=== PATIENT | male | born 1930 | race Caucasian/White ===

== ENCOUNTER 2017-12-03 15:15 | Inpatient (IN) | payer MEDICARE ==
--- NOTE | 2017-12-03 15:51 | RAD ---
UPRIGHT PORTABLE CHEST ONE VIEW: History: 86-year-old male with history of dyspnea. Comparison: 11-07-16 FINDINGS: There is cardiomegaly. Left ICD. Blunting in both costophrenic angles suggesting effusions. Metal den sity opacity overlying the right chest. Mild bilateral vascular congestion. Little change in appearan ce from prior study. IMPRESSION: Overall stable appearing cardiomegaly with vascular congestion and small pleural effusions. No new pr ocess. POS: [facility]
[2017-12-03 16:27] LABS: #Lymphocytes 1.7 thou/uL (1.20-3.40); #Monocytes 0.9 thou/uL (0.11-0.59); #Neutrophils 5.3 thou/uL (1.40-6.50); %Basophils 0.2 % (0.0-1.0); %Eosinophils 0.3 % (0.0-10.0); %Lymphocytes 21.6 % (21.0-51.0); %Monocytes 11.3 % (0.0-10.0); %Neutrophils 66.6 % (42.0-75.0); Hemoglobin 13.4 g/dL (14.0-18.0); Mean Corpuscular HGB CONC 33.4 g/dL (32.0-36.0); Mean Corpuscular Hemoglobin 33.8 pg (27.0-31.0); Mean Platelet Volume 9.2 fL (7.4-10.4); Platelet Count 201 thou/uL (130-400); RBC Distribution Width 13.4 % (11.5-14.5); Red Blood Cell (RBC) Count 3.97 mill/uL (4.70-6.10)
[2017-12-03] MEDS ORDERED: Furosemide 20 MG/2 ML VIAL ONE (16:47)
[2017-12-03 16:48] LABS: ALT (SGPT) 50 U/L (8-55); AST (SGOT) 26 U/L (5-34); Alkaline Phosphatase 184 U/L (40-150); Anion Gap 20 mmol/L (10-20); BUN (Urea Nitrogen) 46 mg/dL (8.4-25.7); Bilirubin, Total 1.4 mg/dL (0.2-1.2); CK (CPK) 101 U/L (30-200); Calc. Creatinine Clearance 0 mL/min (70-130); Calcium 9.1 mg/dL (7.8-10.44); Carbon Dioxide 22 mmol/L (23-31); Chloride 97 mmol/L (98-107); Estimated GFR-MDRD 30; Globulin 3.2 g/dL (2.4-3.5); Glucose 127 mg/dL (83-110); Potassium 3.9 mmol/L (3.5-5.1); Protein, Total 7.2 g/dL (5.8-8.1); Sodium 135 mmol/L (136-145)
[2017-12-03] MEDS ORDERED: Furosemide 40 MG/4 ML VIAL ONE (16:50)
[2017-12-03 16:53] LABS: CKMB 2.5 ng/mL (0-6.6)
--- NOTE | 2017-12-03 20:16 | HP ---
DATE OF ADMISSION: 12/03/2017 PRIMARY CARE PHYSICIAN: Dr. Landry in [place]. PRIMARY COMPENSATION PROGRAMS MANAGER: Dr. Tong. CHIEF COMPLAINT: Shortness of breath. The patient is a transfer from [facility]. HISTORY OF PRESENT ILLNESS: The patient is an 86-year-old male with chronic systolic and diastolic h eart failure, ejection fraction 20%-25%, status post AICD, presented to [facility] with wor sening shortness of breath along with orthopnea. He also has exertional fatigue along with lighthead edness. He noticed his abdomen to be distended along with decreased appetite. No nausea, vomiting, diaphoresis, palpitations reported. At the [facility], his device was interrogated and his fluid index was at 180. He has gain ed 10 pounds in the last 10 days despite up titration of the oral diuretics at home. He was seen 10 days ago at the [facility] again for weight gain of 10 pounds at that time. Torsemide dose was increased at that time. The patient is compliant with his medications as well as fluid restrict ion. PAST MEDICAL HISTORY: 1. 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 2. Coronary artery disease. 3. Ischemic cardiomyopathy. 4. Gastroesophageal reflux disease. 5. Hiatal hernia. 6. Benign prostatic hypertrophy. PAST SURGICAL HISTORY: AICD placement. ALLERGIES: LINACLOTIDE. CURRENT HOME MEDICATIONS: The patient is unable to remember all of his medications. Family to bring the accurate list of medications. SOCIAL HISTORY: The patient currently lives at home with his family. No smoking, alcohol or drug us e. He is FULL CODE and makes his own decisions with the help of his family. FAMILY HISTORY: Negative for inheritable diseases in his family. REVIEW OF SYSTEMS: The following complete review of systems was negative, unless otherwise mentioned in the HPI or below: Constitutional: Weight loss or gain, ability to conduct usual activities. Skin: Rash, itching. Eyes: Double vision, pain. ENT/Mouth: Nose bleeding, neck stiffness, pain, tenderness. Cardiovascular: Palpitations, dyspnea on exertion, orthopnea. Respiratory: Shortness of breath, wheezing, cough, hemoptysis, fever or night sweats. Gastrointestinal: Poor appetite, abdominal pain, heartburn, nausea, vomiting, constipation, or diarrhea. Genitourinary: Urgency, frequency, dysuria, nocturia. Musculoskeletal: Pain, swelling. Neurologic/Psychiatric: Anxiety, depression. Allergy/Immunologic: Skin rash, bleeding tendency. PHYSICAL EXAMINATION: VITAL SIGNS: In the emergency room showed temperature 98.5, respirations 20, pulse of 72, blood pres sure 95/72 and 95/65 with O2 saturation 99% on room air. GENERAL: An 86-year-old male, in mild respiratory distress, unable to lie down flat. HEENT: Head atraumatic, normocephalic, Sclerae are anicteric. Moist mucous membrane. No oral lesio n. NECK: Supple. JVD elevated to the angle of the jaw. No carotid bruit. LUNGS: Showed diminished air entry at bilateral bases with bibasilar rales. There was mild accessor y muscle use. HEART: S1, S2 present. Regular rate and rhythm, 2/6 systolic murmur over the mitral area. ABDOMEN: Soft. Bowel sounds present. Distended. No significant shifting dullness appreciated. EXTREMITIES: 1+ pitting edema noted in bilateral lower extremities. SKIN: Warm and dry. LYMPH NODES: No palpable lymph nodes in the neck. PERIPHERAL VASCULAR: Radial pulses palpable bilaterally. MUSCULOSKELETAL: No joint swelling or tenderness. LABORATORY FINDINGS: BNP 9082. Total bilirubin 1.4 with alkaline phosphatase 184. Sodium 135, pota ssium 3.9, chloride 97, bicarbonate 22, BUN 46, creatinine 2.1. CBC showed WBC 8.0 with hemoglobin 1 3.4, hematocrit 40, platelet count of 201. EKG by my review showed paced rhythm. Chest x-ray by my review showed pulmonary vascular congestion with small pleural effusion. IMPRESSION: 1. 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 The patient has gained approxima tely 20 pounds in the last 3 weeks per [facility] records. His fluid index on Optival inte rrogation was 180. 2. Acute kidney injury on chronic kidney disease stage 3, probably secondary to cardiorenal syndrome . 3. Abnormal liver function tests, probably secondary to passive hepatic congestion. 4. Elevated troponins, probably secondary to demand ischemia/congestive heart failure. 5. Hyponatremia. 6. Microcytic anemia. 7. Gastroesophageal reflux disease. 8. Benign prostatic hypertrophy. 9. Degenerative joint disease. PLAN: The patient will be monitored on the telemetry unit. His blood pressure is in systolic 90s at this time. He received 60 mg IV Lasix around 5:00 p.m. We will start him on Lasix drip at 10 mg an hour overnight due to low blood pressure as well as acute kidney injury. We will hold NILESH inhibitor and ARB for now due to elevated creatinine. We will resume beta blockers at low dose if blood press ure improves in a.m. We will monitor labs on a daily basis. We will confirm home medications. We w ill consult heart failure disease management as well as cardiac rehabilitation. Fluid restriction. Cardiology will be consulted. We will monitor labs on a daily basis. Plan of care was discussed with the patient in detail. He stated understanding.
[2017-12-03] MEDS ORDERED: Senokot 8.6 MG TAB PO PRN (20:23)
[2017-12-03] MEDS ORDERED: Ondansetron HCl/PF 4 MG/2 ML Vial IVP PRN (20:23)
[2017-12-03] MEDS ORDERED: Mag-Al 1200 mg/1200 mg/30 ML UDCUP PO PRN (20:23)
[2017-12-03] MEDS ORDERED: Nitroglycerin 0.4 MG TAB (25 Tab Bottle) PO PRN (20:26)
[2017-12-03] MEDS ORDERED: Potassium Chloride 20 MEQ TAB PO SCH (20:30)
[2017-12-03 21:27] LABS: Troponin I 0.029 ng/mL (< 0.028)
[2017-12-03] MEDS: Famotidine 20 MG TAB PO SCH (22:08)
[2017-12-03] MEDS: Furosemide 100 MG in Sodium Chloride 0.9% 100 ML IVPB SCH (22:10)
[2017-12-03] MEDS: Docusate 100 MG CAP PO SCH (22:10)
[2017-12-04 06:00] LABS: Anion Gap 15 mmol/L (10-20); BUN (Urea Nitrogen) 47 mg/dL (8.4-25.7); Calc. Creatinine Clearance 31 mL/min (70-130); Calcium 8.9 mg/dL (7.8-10.44); Carbon Dioxide 24 mmol/L (23-31); Chloride 101 mmol/L (98-107); Estimated GFR-MDRD 34; Glucose 116 mg/dL (83-110); Magnesium 2.6 mg/dL (1.6-2.6); Phosphorus 4.4 mg/dL (2.3-4.7); Potassium 3.8 mmol/L (3.5-5.1); Sodium 136 mmol/L (136-145)
[2017-12-04] MEDS: Furosemide 100 MG in Sodium Chloride 0.9% 100 ML IVPB SCH ×2 (07:30→17:39)
[2017-12-04] MEDS: Aspirin 81 mg Enteric Coated Tablet PO SCH (08:59)
[2017-12-04] MEDS: Cyanocobalamin (Vitamin B-12) 1,000 MCG TAB PO SCH (08:59)
[2017-12-04] MEDS: Folic Acid 1 MG TAB PO SCH (08:59)
[2017-12-04] MEDS: Docusate 100 MG CAP PO SCH ×2 (08:59→20:37)
[2017-12-04] MEDS: Potassium Chloride 20 MEQ TAB PO SCH (08:59)
[2017-12-04] MEDS: Multivit, Therapeutic 1 TAB PO SCH (08:59)
--- NOTE | 2017-12-04 12:43 | CON ---
DATE OF CONSULTATION: 12/04/2017 REASON FOR CONSULTATION: Abdominal distention, bloating and pain. HISTORY: Mr. Williamson is an 86-year-old male who was admitted from the [facility] with wors ening dyspnea and orthopnea. He has known severe systolic and diastolic heart failure with ejection fraction of 20%-25%. Patient has had chronic shortness of breath, but has somewhat improved since ad mission yesterday. He reports having persistent bloating sensation in his abdomen along with distent ion over the last 2 months. He denies having any nausea or vomiting. He did have some diarrhea for 2 days approximately 2 months ago after given antibiotics for his sinus infection, but has since reso lved. He is having normal regular bowel movements. Of note, he has had chronic constipation for man y years. He denies having any visible bleeding in stool or melena. He described a generalized bloat ing sensation with low grade pain/discomfort in the periumbilical area. He reports having had previo us cholecystectomy. He also reports having had a colonoscopy in [place] last year. As far as he kn ows, there were no notable findings with his colonoscopy. PAST MEDICAL HISTORY: 1. Coronary artery disease, status post AICD placement. 2. Chronic systolic and diastolic heart failure. 3. Ischemic cardiomyopathy. 4. Gastroesophageal reflux. 5. Benign prostatic hypertrophy. 6. Status post cholecystectomy. ALLERGIES: LINACLOTIDE. MEDICATIONS AT HOME: Include torsemide 10 mg every day, 20 mg p.m., K-Dur 20 mEq daily, pantoprazole 40 mg daily, Coreg 12.5 mg b.i.d., aspirin 81 mg every day, and Entresto b.i.d. SOCIAL HISTORY: The patient denies any alcohol or tobacco usage. FAMILY HISTORY: Negative for any known GI problem, liver disease, GI malignancy. REVIEW OF SYSTEMS: GENERAL: Poor appetite, unknown weight loss. EYES, EARS, NOSE AND THROAT: Nega tive. CARDIOVASCULAR: He denies any chest pain. CHEST: Shortness of breath as above. GASTROINTES TINAL: As above. GENITOURINARY: No urinary issue. NEURO: No sensory or motor deficit. PHYSICAL EXAMINATION: VITAL SIGNS: Temperature is 97.7, blood pressure 107/50, pulse of 71. GENERAL: Alert, conversant, in no distress. HEENT: Shows normal pupils, anicteric. Oropharynx clear. HEART: Shows normal S1, S2, regular rate and rhythm. LUNGS: Chest exam shows breath sounds, no adventitious sounds. ABDOMEN: Very soft, no distention, no tympany. No appreciable fluid wave. He has active bowel soun ds, essentially nontender to palpation. EXTREMITIES: Showed trace pedal edema. LABORATORY DATA: Sodium 136, potassium 3.8, chloride 101, CO2 24, creatinine 1.88, BUN of 47, biliru bin 1.4, AST 26, ALT 50, alkaline phosphatase 184. WBC is 8.0, hemoglobin 13.4, platelet count of 20 1. ASSESSMENT: 1. Several week history of abdominal bloating and distention with periumbilical pain. His current a bdominal exam is very normal and benign. I do not appreciate any fluid wave, nor any tympany or appr eciable distention. There is no palpable mass. Reportedly, he had an unremarkable colonoscopy in [place] last year. 2. Heart failure. 3. Coronary artery disease. 4. Chronic gastroesophageal reflux. 5. Status post cholecystectomy. RECOMMENDATIONS: 1. Given his persistent complaint of abdominal bloating, distention and pain with very normal physic al exam, I will obtain abdominal CT with enteric contrast (no IV contrast because of his poor renal f unction) to evaluate for any intra-abdominal pathology. 2. Further recommendation to follow pending CT findings.
--- NOTE | 2017-12-04 14:14 | ULT ---
LIMITED ABDOMINAL ULTRASOUND: History: Evaluation for ascites. FINDINGS: Some minimal ascites is noted in the right upper quadrant and left lower quadrant of the abdomen. IMPRESSION: Minimal ascites. POS: [facility]
--- NOTE | 2017-12-04 15:07 | CT ---
NONCONTRAST ENHANCED CT IMAGES OF THE ABDOMEN AND PELVIS: History: Abdominal distention. Oral contrast was given. IV contrast was not administered. FINDINGS: Noncontrast enhanced CT images of the abdomen and pelvis demonstrates bilateral pleural effusions. A small amount of ascites is seen. There is gastroesophageal reflux with some contrast in the distal esophagus. There appears to be an a marry of soft tissue thickening in the greater curvature of the stomach. Gastric wall mass cannot be ex cluded. The liver and spleen are grossly unremarkable. The pancreas is moderately atrophied. The gallbladder has been surgically removed. Both kidneys are atrophied with cortical thinning. There is an exophytic lesion in the right kidney most compatible with a cortical cyst. Atherosclerotic calcification of the abdominal aorta is seen. There is marked enlargement of the prostate gland. Small amount of free fluid is seen extending into the right inguinal canal. There is a small pocket of gas within the urinary bladder. Whether this is introduced via catheteriza tion or possibly due to gas forming organism within the bladder I cannot determine. Correlate with hi story. There is also some bladder wall thickening seen. Multilevel lumbar degenerative changes seen. IMPRESSION: 1. Ascites. 2. Bilateral pleural effusions. 3. Prostate enlargement. 4. Urinary bladder thickening and pocket of gas within it. 5. Greater curvature gastric wall thickening, malignancy cannot be excluded. POS: [facility]
--- NOTE | 2017-12-04 16:56 | PDOC.PN ---
- Subjective Encounter Start Date: 12/04/17 Encounter Start Time: 09:00 Patient seen and examined for CHF. c/o Abd distention with poor appetite. Dizziness improving. No CP/SOB/Palpitations. No overnight events - Objective Resuscitation Status: Resuscitation Status DNR:Do Not Resuscitate MAR Reviewed: Yes Vital Signs & Weight: Vital Signs (12 hours) Temp Pulse Pulse Pulse Resp BP BP 12/04/17 13:26 76 100/63 12/04/17 12:00 97.2 F L 73 14 12/04/17 10:07 71 74 107/59 L 100/66 12/04/17 08:00 97.7 F 60 18 BP BP Pulse Ox Pulse Ox Pulse Ox 12/04/17 13:26 96 12/04/17 12:00 102/69 97 12/04/17 10:07 97 12/04/17 08:00 105/67 99 Weight Weight 176 lb 3.2 oz I&O: 12/03/17 12/04/17 12/05/17 06:59 06:59 06:59 Intake Total 915 400 Output Total 900 Balance 15 400 Result Diagrams: 12/03/17 16:12 12/04/17 16:39 Radiology Reviewed by me: Yes EKG Reviewed by me: Yes (Tele paced) Phys Exam - Physical Examination Constitutional: NAD (at rest) Neck: supple JVD + Respiratory: no wheezing Bibasilar rales with scat rhonchi, Symmetrical, Mild accessory muscle use Cardiovascular: RRR, no rub No heaves/pulsations Gastrointestinal: soft, no distention, positive bowel sounds Musculoskeletal: pulses present, edema present (improving) Neurological: non-focal, moves all 4 limbs Psychiatric: normal affect, A&O x 3 Dx/Plan - Plan DVT proph w/SCDs IMPRESSION: 1. 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 ACEI/ARB on hold due to PADMA 2. Acute kidney injury on chronic kidney disease stage 3, probably secondary to cardiorenal syndrome. improving 3. Abnormal liver function tests, probably secondary to passive hepatic congestion. 4. Elevated troponins, probably secondary to demand ischemia/congestive heart failure. 5. Hyponatremia. improiving 6. Microcytic anemia. 7. Gastroesophageal reflux disease. on Pepcid 8. Benign prostatic hypertrophy. 9. Degenerative joint disease. PLAN: * Abd Ultrasound to assess for ascites * Reduce Lasix drip at 6 mg/ hr * Repeat BMP later today * AM labs * Cont ASA * Resume low dose Betablockers - hold for SBP <100 * Cont to monitor * Cont current meds as below Review of Systems - Review of Systems Respiratory: negative: Cough, Dry, Shortness of Breath, Hemoptysis, SOB with Excertion, Pleuritic Pain, Sputum, Wheezing Gastrointestinal: Abdominal Pain. negative: Nausea, Vomiting, Diarrhea, Constipation, Melena, Hematochezia, Other Genitourinary: negative: Dysuria, Frequency, Incontinence, Hematuria, Retention , Other - Medications/Allergies Allergies/Adverse Reactions: Allergies Allergy/AdvReac Type Severity Reaction Status Date / Time linaclotide [From Linzess] Allergy Diarrhea Verified 12/03/17 22:04 Medications: Current Medications Acetaminophen (Tylenol) 650 mg PO Q4H PRN PRN Reason: Headache/Fever or Pain Al Hydroxide/Mg Hydroxide (Maalox) 30 ml PO Q6H PRN PRN Reason: Heartburn or Indigestion Aspirin (Ecotrin) 81 mg PO DAILY [facility] Last Admin: 12/04/17 08:59 Dose: 81 mg Calcium Carbonate (Tums) 1,000 mg PO Q4H PRN PRN Reason: Heartburn or Indigestion Carvedilol (Coreg) 3.125 mg PO BID [facility] Cyanocobalamin (Vitamin B-12) 1,000 mcg PO DAILY [facility] Last Admin: 12/04/17 08:59 Dose: 1,000 mcg Docusate Sodium (Colace) 100 mg PO BID [facility] Last Admin: 12/04/17 08:59 Dose: Not Given Famotidine (Pepcid) 20 mg PO QPM [facility] Last Admin: 12/03/17 22:08 Dose: 20 mg Folic Acid (Folvite) 1 mg PO DAILY [facility] Last Admin: 12/04/17 08:59 Dose: 1 mg Furosemide 100 mg/ Sodium (Chloride) 110 mls @ 11 mls/hr IVPB INF [facility] PRN Reason: 10 MG/HR Last Admin: 12/04/17 07:30 Dose: 110 mls Multivitamins (Theragran) 1 tab PO DAILY [facility] Last Admin: 12/04/17 08:59 Dose: 1 tab Nitroglycerin (Nitrostat) 0.4 mg PO Q5MIN PRN PRN Reason: Chest Pain Ondansetron HCl (Zofran Odt) 4 mg PO Q6H PRN PRN Reason: Nausea/Vomiting Ondansetron HCl (Zofran) 4 mg IVP Q6H PRN PRN Reason: Nausea/Vomiting Potassium Chloride (K-Dur) 20 meq PO QAM-WM [facility] Last Admin: 12/04/17 08:59 Dose: 20 meq Senna (Senokot) 2 tab PO HSPRN PRN PRN Reason: Constipation Sodium Chloride (Flush - Normal Saline) 10 ml IVF Q12HR [facility] Last Admin: 12/04/17 09:00 Dose: Not Given Sodium Chloride (Flush - Normal Saline) 10 ml IVF PRN PRN PRN Reason: Saline Flush
[2017-12-04 17:05] LABS: Anion Gap 20 mmol/L (10-20); BUN (Urea Nitrogen) 51 mg/dL (8.4-25.7); Calc. Creatinine Clearance 26 mL/min (70-130); Calcium 9.3 mg/dL (7.8-10.44); Carbon Dioxide 21 mmol/L (23-31); Chloride 99 mmol/L (98-107); Estimated GFR-MDRD 28; Glucose 154 mg/dL (83-110); Potassium 4.2 mmol/L (3.5-5.1); Sodium 136 mmol/L (136-145)
[2017-12-04] MEDS: Famotidine 20 MG TAB PO SCH (20:37)
[2017-12-04] MEDS: Carvedilol 3.125 MG TAB PO SCH (20:37)
[2017-12-04 22:12] LABS: Bilirubin Negative (Negative); Blood, Urine Small (Negative); Clarity CLEAR (Clear); Glucose, Urine (Dipstick) Negative (Negative); Leukocyte Small (Negative); Nitrite Negative (Negative); Protein, Urine (Dipstick) Negative (Neg-Trace); Specific Gravity, Urine 1.011 (1.002-1.036)
[2017-12-04 22:15] LABS: Bacteria/HPF None Seen HPF (None Seen); Hyaline Casts/LPF 4-6 HYALINE CAST LPF (0-3 Hyaline); Squamous Epithelial 0-3 HPF (0-3)
[2017-12-05] MEDS: cefTRIAXone\\ROCEPHIN 1 GM in Sodium Chloride 0.9% 100 ML IVPB SCH ×2 (00:16→23:57)
--- NOTE | 2017-12-05 00:54 | CON ---
DATE OF CONSULTATION: 12/04/2017 INDICATION FOR CONSULTATION: An 86-year-old gentleman who I have followed for many years. He has reyes d a long history of cardiomyopathy extending almost 20 years. He has had an AICD implant, has been d oing relatively well. He has chronic dizziness. He also has occasional chest discomfort and abdomin al distention, which causes him increasing shortness of breath. He describes that yesterday he was h aving more of a bloating-type sensation and was unable to take a deep breath in, but has not had any significant change overall. He has had multiple problems in the past. He has always had this chroni c dizziness and hypotension. He has had history of cardiac catheterization in the past, had not had any critical coronary artery disease. He does have some mild disease. Mainly, he has had an ejectio n fraction of less than 20% as noted for almost 20 years now. He has had no significant chest discom fort otherwise, and this appears to be more associated with abdominal bloating and distention causing some of his discomfort. He does have elevated BNP due to his chronic diastolic and systolic heart f ailure. He has been maintained relatively well and has been seen by the [facility]. He do es not have any significant lower extremity edema and his volume status has remained relatively stabl e despite having increase in his BNP. His cardiac enzymes are unremarkable for any evidence of coron armin artery disease or any evidence of myocardial infarction. They are indeterminate, but are not gato vated enough to consider myocardial infarction. He does have chronic kidney disease also. His creat inine actually has now increased up from 0.188 up to 2.24 after being given some diuretics. He may a ctually be somewhat volume depleted and third spacing, but otherwise he has been remaining relatively stable overall with his coronary artery disease. He actually presented yesterday to [facility] with a suitcase in hand saying that he needed to admitted, mainly due to dizziness and the shortness of breath, but again he states that he did have some abdominal discomfort and bloating angélica ng it difficult for him to breathe, not that he is actually short of breath, but he has difficulty to actually get a deep breath in. He said his defibrillator was checked on a routine basis and this reyes s been actually very stable. His last echocardiogram was performed in the office in 07/2017, which s howed an ejection fraction of about 25% with left ventricular dilatation, left atrial dilatation, mod erate mitral valve regurgitation, [id number] aortic valve regurgitation. Otherwise, he has don e relatively well. His last cardiac catheterization was many years ago. PAST MEDICAL HISTORY: Significant for the cardiomyopathy, peptic ulcer disease, he has had carpal tu nnel syndrome, gastroesophageal reflux disease, history of shingles in 2016. PAST SURGICAL HISTORY: He has had an AICD placement, he actually had a change out of the AICD in . He has had cataract surgery and cholecystectomy. ALLERGIES: None. MEDICATIONS: His medications prior to admission included Dexilant, Tylenol Arthritis, Claritin, Core g 25 mg half a tablet twice a day, Entresto 24/26 one tablet twice a day, torsemide 20 mg one and rhiannon f tablet daily, potassium 10 mEq a day. FAMILY HISTORY: Noncontributory. REVIEW OF SYSTEMS: He mainly complains of the shortness of breath at times and also has abdominal di scomfort and chronic dizziness. He has had no significant weight loss or weight gain. Respiratory: He has had no complaints recently of any pneumonias, coughing, or hemoptysis. Gastrointestinal: He mainly complains of some bloating, some discomfort with pressure. Genitourinary: He had no new complaints. No dysuria, polyuria, or hematuria. Musculoskeletal: Occasional lower extremity edema. He is able to ambulate relatively well despite his age. Neurologic: No history of seizures or syn cope. PHYSICAL EXAMINATION: GENERAL: Reveals an elderly gentleman, who is in no acute distress at this time. VITAL SIGNS: Blood pressure is 100/67. He is afebrile, respiratory rate is 16, heart rate is in the 70s and shows a sinus rhythm with ventricular pacing at times. Otherwise, it appears to be just a s inus rhythm with a bundle branch block. His original EKG did show evidence of atrial pacing and most likely ventricular pacing, but it was initially atrial pacing with ventricular sensing with a right bundle branch block. He has remained otherwise stable. CHEST: Clear to auscultation. I did not hear any rales, rhonchi, or wheezing. CARDIOVASCULAR: Regular rate and rhythm at this time. There were no gross murmurs noted. He does h ave a soft systolic murmur at the apex. ABDOMEN: Some tympany and also some distention and some mild discomfort on palpation, but no palpabl e masses were noted. EXTREMITIES: No clubbing or cyanosis. He had minimal lower extremity edema. Pedal pulses are decre ased, but popliteal pulses are present. NEUROLOGIC: The patient appears to be intact. LABORATORY DATA: As noted, showed the creatinine of 2.24 after some diuresis. His hemoglobin was 13 .4. He actually may be somewhat over diuresed at this time. IMPRESSION: 1. Probable congestive heart failure exacerbation with diastolic and systolic heart failure, which m ay be associated with worsening of his abdominal bloating. I am uncertain of the etiology of his abd ominal discomfort. He may need to have a GI consultation. He did have an endoscopy several years ag o and I believe he has been told that he had peptic ulcer disease in the past. He is certainly compr omised when he has any decrease in his diaphragmatic function as he is unable to take deep inspirator y breaths and that makes him to feel somewhat short of breath. 2. History of severe cardiomyopathy, both systolic and diastolic dysfunction. He is status post imp lant for an AICD. He has had no shocks from the device. He appears to be doing very well as far as that is concerned. Little more to offer from a cardiac standpoint as far as his cardiomyopathy is co ncerned. He seems to be on the correct medications and as noted, he has had a diagnosis of cardiomyo mena for at least 17 years. 3. History of dizziness. This is an ongoing problem for this gentleman. He has complained of dizzi ness for many years now, and uncertain also of the etiology of his dizziness, but this is a chronic a nd ongoing problem. He does also have a history of mild coronary artery disease. This has remained stable. He is not a candidate to undergo intervention at this time. 4. Gastroesophageal reflux disease. I would suggest that perhaps he have a Gastroenterology consult ation to see if we can give any relief of his abdominal discomfort, which may actually help his cardi ac status.
[2017-12-05 05:57] LABS: Anion Gap 17 mmol/L (10-20); BUN (Urea Nitrogen) 51 mg/dL (8.4-25.7); Calc. Creatinine Clearance 28 mL/min (70-130); Calcium 9.5 mg/dL (7.8-10.44); Carbon Dioxide 23 mmol/L (23-31); Chloride 101 mmol/L (98-107); Estimated GFR-MDRD 31; Glucose 132 mg/dL (83-110); Magnesium 2.9 mg/dL (1.6-2.6); Phosphorus 4.2 mg/dL (2.3-4.7); Sodium 137 mmol/L (136-145)
[2017-12-05] MEDS: Furosemide 100 MG in Sodium Chloride 0.9% 90 ML IVPB SCH ×2 (06:40→23:57)
[2017-12-05] MEDS: Carvedilol 3.125 MG TAB PO SCH ×2 (08:21→21:26)
[2017-12-05] MEDS: Docusate 100 MG CAP PO SCH ×2 (08:22→21:26)
[2017-12-05] MEDS ORDERED: Midazolam HCl 2 mg/2 ml Vial ONE (10:27)
[2017-12-05] MEDS ORDERED: Norepinephrine 4 MG/4 ML VIAL ONE (10:27)
[2017-12-05] MEDS ORDERED: Ketamine 50 MG/ML VIAL ONE (10:27)
[2017-12-05] MEDS ORDERED: Promethazine HCl 25 MG/ML VIAL SLOW IVP PRN (10:52)
[2017-12-05] MEDS ORDERED: Morphine Sulfate 2 MG/ML SYRINGE SLOW IVP PRN (10:52)
[2017-12-05] MEDS ORDERED: Ondansetron HCl/PF 4 MG/2 ML Vial IVP PRN (10:52)
--- NOTE | 2017-12-05 12:54 | OP ---
DATE OF PROCEDURE: 12/05/2017 SURGEON: Emeka Ortiz M.D. PREOPERATIVE DIAGNOSES: 1. Vague abdominal discomfort with distention and bloating being the main complaints. 2. CAT scan yesterday evening with oral contrast only showed a small amount of ascites, bilateral pl eural effusions, reflux in the distal esophagus and questionable area of soft tissue thickening of th e greater curve of the stomach. Gastric mass was a concern to the radiologist. POSTOPERATIVE DIAGNOSES: 1. A 5 cm hiatal hernia with some irregularity at the distal esophagus consistent with LA grade A re flux esophagitis. 2. Irregular Z-line with a salmon pink mucosa in the distal esophagus above the gastric folds for ab out 2 cm consistent with short segment Leonard's. These appeared normal with no evidence irregularit y, the decision was made not to biopsy for surveillance in this 86-year-old with severe heart failure . 3. Stomach was normal with no evidence of masses and normal distensibility. 4. Normal duodenum to the third portion. RECOMMENDATIONS: 1. Antireflux regimen. 2. Continue PPI of home medications 40 mg daily, would not take it at bedtime, but before evening me al. 3. I think a lot of the patient's bloating and discomfort in the abdomen is probably related to some passive congestion with his heart failure. He does have mild ascites. He has bilateral effusions. These probably all are playing a role. Eating a low residue diet may be helpful not causing gas and bloating, but reviewing his CAT scan he does not have any significant small bowel distention. 4. We will follow from a distance. If we can be of any further assistance, please do not hesitate t o reconsult. ANESTHESIA: TIVA. PROCEDURE IN DETAIL: After the patient was informed of the risks, benefits and possible complication s of endoscopy including perforation, bleeding, reactions to medication, aspiration, informed consent was obtained. The patient was brought to endoscopy suite where he was sedated in a gradual fashion. Once he was comfortable, a bite block was placed in incisural orifice. The endoscope was advanced through the esophagus, stomach and second and third portion of duodenum and slowly removed. The esop hagus was notable for hiatal hernia about 5 cm in size. The proximal gastric folds were at about 40 cm. The hiatus was at 45. The Z-line was about 38 cm. There was a salmon pink mucosa in distal eso phagus consistent with Leonard esophagus without ulcerations, erosions or abnormalities on I scan surya ging. The decision was made not to biopsy for surveillance as this patient has severe heart failure and renal failure and is not a candidate for surveillance. The stomach was entered. Forward and ret roflexed views revealed the hiatal hernia, there was normal distensibility of the stomach. There is no evidence of soft tissue mass in the greater or lesser curve of the stomach, the entire stomach taylor eared normal. The duodenal bulb in second and third portions was normal. The distal esophagus was e valuated, there was some reflux esophagitis, otherwise the stomach was normal. There were no finding s to suggest a mass which was suggested by the CAT scan. The scope was removed. The patient tolerate d procedure well. RECOMMENDATIONS: 1. Aggressive management of fluid status. I think his heart failure is a large component of his sym ptoms with ascites in the abdominal cavity and enlarged liver, which indicates a very dilated inferio r vena cava indicating passive congestion. 2. PPI therapy for reflux. 3. Low residue diet may help prevent gas and bloating.
--- NOTE | 2017-12-05 13:19 | PDOC.CTH ---
<Ting Javier - Last Filed: 12/05/17 13:16> Cardiology Progress Note - Subjective The pt seen and examined. No overnight events. No cardiac complaints. - Objective Vital Signs Temp Pulse Pulse Pulse Resp BP BP 12/05/17 11:10 96.7 F L 70 17 12/05/17 08:25 71 77 116/59 L 100/69 12/05/17 08:12 97.4 F L 73 20 12/05/17 08:10 97.4 F L 73 20 12/05/17 04:00 97.8 F 58 L 22 H BP BP Pulse Ox 12/05/17 11:10 104/69 100 12/05/17 08:25 12/05/17 08:12 104/62 98 12/05/17 08:10 98 12/05/17 04:00 99/54 L 98 Weight 175 lb 12/04/17 12/05/17 12/06/17 06:59 06:59 06:59 Intake Total 915 2212 Output Total 900 1650 Balance 15 562 - Physical Examination Neck: no JVD present Lungs: other: (diminished at bases) Heart: RRR Abdomen: soft Extremities: other: (No edema) - Telemetry Telemetry Rhythm: AV paced - Labs Result Diagrams: 12/03/17 16:12 12/05/17 05:23 Troponin/CKMB CK-MB (CK-2) 2.5 ng/mL (0-6.6) 12/03/17 16:12 Troponin I 0.029 ng/mL (< 0.028) H 12/03/17 20:53 - Assessment/Plan 1. Acute on chronic systolic/diastolic heart failure exacerbation - stable today with Lasix drip 6mg/h and Coreg 3.125mg BID. ACEI/ARB on hold due to PADMA 2. non-ischemic CMY with hx of AICD - stable 3. 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 Abnormal liver function tests, probably secondary to passive hepatic congestion. 4. ABD bloating with Hx of peptic ulcer - EGD today showed mild ascities, 5 cm hiatal hernia, bilat effusion; 5. GERD - on Pepcid MAR reviewed Review of Systems - Review of Systems Constitutional: reports: no symptoms reported EENTM: reports: no symptoms reported Respiratory: reports: no symptoms reported Cardiac (ROS): reports: no symptoms reported ABD/GI: reports: no symptoms reported : reports: no symptoms reported Musculoskeletal: reports: no symptoms reported <Piotr Tong - Last Filed: 12/05/17 17:49> Cardiology Progress Note - Objective Vital Signs Temp Pulse Pulse Pulse Resp BP BP 12/05/17 16:00 72 18 12/05/17 11:10 96.7 F L 70 17 12/05/17 08:25 71 77 116/59 L 100/69 12/05/17 08:12 97.4 F L 73 20 12/05/17 08:10 97.4 F L 73 20 BP Pulse Ox 12/05/17 16:00 101/66 98 12/05/17 11:10 104/69 100 12/05/17 08:25 12/05/17 08:12 104/62 98 12/05/17 08:10 98 Weight 175 lb 12/04/17 12/05/17 12/06/17 06:59 06:59 06:59 Intake Total 915 2212 Output Total 900 1650 Balance 15 562 - Labs Result Diagrams: 12/03/17 16:12 12/05/17 05:23 Troponin/CKMB CK-MB (CK-2) 2.5 ng/mL (0-6.6) 12/03/17 16:12 Troponin I 0.029 ng/mL (< 0.028) H 12/03/17 20:53 - Assessment/Plan Pt. seen and eval. by me. I agree with the A/P by the ELECTRONICS COMMODITY MANAGER. He is still sleepy after the EGD. No acute findings. He presents a difficult situation with his decrease cardiac output. He seems vol. overloaded but the BUN:creat. appears to indicated the pt. is intravascularly depleted somewhat. With the renal insufficiency this becomes difficult to control the vol. status. at this time I would continue the diuretics.
[2017-12-05] MEDS: Multivit, Therapeutic 1 TAB PO SCH (13:44)
[2017-12-05] MEDS: Aspirin 81 mg Enteric Coated Tablet PO SCH (13:44)
[2017-12-05] MEDS: Potassium Chloride 20 MEQ TAB PO SCH (13:45)
[2017-12-05] MEDS: Cyanocobalamin (Vitamin B-12) 1,000 MCG TAB PO SCH (13:45)
[2017-12-05] MEDS: Folic Acid 1 MG TAB PO SCH (13:45)
--- NOTE | 2017-12-05 13:52 | PDOC.PN ---
- Subjective Encounter Start Date: 12/05/17 Encounter Start Time: 13:47 Patient seen and examined for CHF/Abd pain. Underwent EGD - Somnolent due to Anesthesia. No new complaints. No overnight events - Objective Resuscitation Status: Resuscitation Status DNR:Do Not Resuscitate MAR Reviewed: Yes Vital Signs & Weight: Vital Signs (12 hours) Temp Pulse Pulse Pulse Resp BP BP 12/05/17 11:10 96.7 F L 70 17 12/05/17 08:25 71 77 116/59 L 100/69 12/05/17 08:12 97.4 F L 73 20 12/05/17 08:10 97.4 F L 73 20 12/05/17 04:00 97.8 F 58 L 22 H BP BP Pulse Ox 12/05/17 11:10 104/69 100 12/05/17 08:25 12/05/17 08:12 104/62 98 12/05/17 08:10 98 12/05/17 04:00 99/54 L 98 Weight Weight 175 lb I&O: 12/04/17 12/05/17 12/06/17 06:59 06:59 06:59 Intake Total 915 2212 Output Total 900 1650 Balance 15 562 Result Diagrams: 12/06/17 05:16 12/06/17 05:16 EKG Reviewed by me: Yes (Paced) Phys Exam - Physical Examination Constitutional: NAD (somnolent) Respiratory: no wheezing, no rhonchi Dec AE at bases Cardiovascular: RRR, no rub Gastrointestinal: soft, non-tender, positive bowel sounds Musculoskeletal: edema present Neurological: moves all 4 limbs Dx/Plan - Plan DVT proph w/SCDs IMPRESSION: 1. 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 ACEI/ARB on hold due to PADMA 2. Acute kidney injury on chronic kidney disease stage 3, probably secondary to cardiorenal syndrome. 3. UTI with bladder wall thickening/air pocket 4. Abd discomfort due to Ascites/Hepatic congestion and Esophagitis - s/p EGD 5. Other issues per previous notes PLAN: * Await Urology input - Cont IV Ceftriaxone * Cont Coreg & Lasix drip at 6 mg/ hr * AM labs * Cont PPI * Cont to monitor * Cont current meds as below * Await Urine cultures Review of Systems - Review of Systems Respiratory: negative: Cough, Dry, Shortness of Breath, Hemoptysis, SOB with Excertion, Pleuritic Pain, Sputum, Wheezing Cardiovascular: negative: chest pain, palpitations, orthopnea, paroxysmal nocturnal dyspnea, edema, light headedness, other - Medications/Allergies Allergies/Adverse Reactions: Allergies Allergy/AdvReac Type Severity Reaction Status Date / Time linaclotide [From Linzess] Allergy Diarrhea Verified 12/03/17 22:04 Medications: Current Medications Acetaminophen (Tylenol) 650 mg PO Q4H PRN PRN Reason: Headache/Fever or Pain Al Hydroxide/Mg Hydroxide (Maalox) 30 ml PO Q6H PRN PRN Reason: Heartburn or Indigestion Last Admin: 12/04/17 17:38 Dose: 30 ml Aspirin (Ecotrin) 81 mg PO DAILY [facility] Last Admin: 12/05/17 13:44 Dose: 81 mg Calcium Carbonate (Tums) 1,000 mg PO Q4H PRN PRN Reason: Heartburn or Indigestion Carvedilol (Coreg) 3.125 mg PO BID [facility] Last Admin: 12/05/17 08:21 Dose: 3.125 mg Cyanocobalamin (Vitamin B-12) 1,000 mcg PO DAILY [facility] Last Admin: 12/05/17 13:45 Dose: 1,000 mcg Docusate Sodium (Colace) 100 mg PO BID [facility] Last Admin: 12/05/17 08:22 Dose: Not Given Fentanyl (Pacu-Sublimaze) 50 mcg SLOW IVP Q10MIN PRN PRN Reason: Moderate to Severe Pain (6-10) Stop: 12/05/17 13:52 Folic Acid (Folvite) 1 mg PO DAILY [facility] Last Admin: 12/05/17 13:45 Dose: 1 mg Furosemide 100 mg/ Sodium (Chloride) 100 mls @ 6 mls/hr IVPB INF [facility] PRN Reason: 6 MG/HR Last Admin: 12/05/17 06:40 Dose: 100 mls Ceftriaxone Sodium 1 gm/ (Sodium Chloride) 100 mls @ 200 mls/hr IVPB Q24HR [facility] Last Admin: 12/05/17 00:16 Dose: 100 mls Morphine Sulfate (Pacu-Morphine Sulfate) 2 mg SLOW IVP Q10MIN PRN PRN Reason: Moderate to Severe Pain (6-10) Stop: 12/05/17 13:52 Morphine Sulfate (Pacu-Morphine Sulfate) 4 mg SLOW IVP ONE PRN PRN Reason: Moderate to Severe Pain (6-10) Stop: 12/05/17 13:52 Multivitamins (Theragran) 1 tab PO DAILY [facility] Last Admin: 12/05/17 13:44 Dose: 1 tab Nitroglycerin (Nitrostat) 0.4 mg PO Q5MIN PRN PRN Reason: Chest Pain Ondansetron HCl (Zofran Odt) 4 mg PO Q6H PRN PRN Reason: Nausea/Vomiting Ondansetron HCl (Zofran) 4 mg IVP Q6H PRN PRN Reason: Nausea/Vomiting Ondansetron HCl (Pacu-Zofran) 4 mg IVP ONE PRN PRN Reason: Nausea/Vomiting Stop: 12/05/17 13:52 Pantoprazole Sodium (Protonix) 40 mg PO DAILY [facility] Potassium Chloride (K-Dur) 20 meq PO QA-[facility] Last Admin: 12/05/17 13:45 Dose: 20 meq Promethazine HCl (Pacu-Phenergan) 6.25 mg SLOW IVP ONE PRN PRN Reason: Nausea/Vomiting Stop: 12/05/17 13:52 Senna (Senokot) 2 tab PO HSPRN PRN PRN Reason: Constipation Sodium Chloride (Flush - Normal Saline) 10 ml IVF Q12HR [facility] Last Admin: 12/05/17 08:22 Dose: Not Given Sodium Chloride (Flush - Normal Saline) 10 ml IVF PRN PRN PRN Reason: Saline Flush
--- NOTE | 2017-12-06 02:32 | CON ---
DATE OF CONSULTATION: 12/05/2017 HISTORY OF PRESENT ILLNESS: This is an 86-year-old white male I was asked to see today, 12/05/2017, because of air in the urinary bladder on a CAT scan that was done on 12/04/2017. This patient was ad mitted on 12/03/2017. He came in with heart failure, shortness of breath, fatigue, and abdominal dis tention. He was not reporting any urinary tract problems. He has been admitted by the hospitalist. He has had a cardiac evaluation and consultation with Dr. Tong and GI with Dr. Jane and Dr. Ortiz. In fact, today, he underwent a procedure by Dr. Ortiz that showed a hiatal hernia and some reflux e sophagitis with a short segment of Leonard's esophagitis, normal stomach, normal duodenum. He is berenice ng treated for heart failure. He has got very low ejection fractions. He had, as mentioned, a CAT s can that was done yesterday, so he came in on 12/03/2017; CAT scan was done yesterday, and the CAT sc an does show a little air in the urinary bladder. He has got some thickening of the bladder wall. N o hydro, no stones, no renal masses noted. Nothing to suggest ureteral obstruction. Bladder was not significantly distended. He also did have some ascites. So, the air in the urinary bladder was wha t the concern was for, his prostate was enlarged. On talking with him, he has not really had any voi ding symptoms. When he takes a diuretic, he gets up 4-5 times at night; if he does not, he gets up o nce. He has a decent force of stream feels to empty this. Generally, no dysuria or hematuria, no hi story of prostate cancer, prostate surgery, urinary tract infections, or stone disease. He does have occasional urgency, but no urge incontinence. I believe he has probably seen a urologist, as he say s he goes to [place] periodically to get checked by a urologist from [place], so it may be that Dr. Keegan Romero has been seeing him there. His urinalysis here did show some white blood cells and this was done yesterday, he had 7-10 white cells, 4-6 red cells. His creatinine is 2.06 currently. His white count is normal at 8. His hemoglobin is 13.4. He has got a urine culture that has no growth a t 12 hours. His vital signs, he has been afebrile. On talking with him further, I asked him if he h as ever had a Bueno catheter placed. He says he never until he came to the ER here on 12/03/2017, an d at that point, they did put a Bueno catheter in, in the emergency room; it was in for he thinks 30 minutes and then was removed, because it was so uncomfortable. So, he was catheterized on 12/03/2017 . I cannot find any documentation in his ER notes that say that this occurred, but there appeared to be an order from the ER doctor that said to place a Bueno catheter. I did not see nursing notes to suggest that it was done, but apparently, it was not in very long, but the patient recalls it being i n and certainly mentions the discomfort that he had from it and that is why it was removed, and the f act that he had some burning since then. His physical exam, he has no flank tenderness. His abdomen is not distended, it is soft. The bladder is not distended. He has been having some periumbilical discomfort, but he really has minimal tenderness now. He is not circumcised. There are no lesions, no phimosis. Testicles descended without mass or tenderness. I did not do a rectal exam. IMPRESSION: Air in the urinary bladder, which is most likely from having a catheter in for a short p eriod in the emergency room when he was first admitted. He came in on 12/03/2017 and a CAT scan was done on 12/04/2017, I think this explains it. A urine culture has been set up. We will see if it gr ows anything, but if it does not, I would not treat him for very long with an antibiotic and he has b een started on Rocephin, at least not from a urinary tract source. I will follow along with you and check on his final cultures. He does not appear that he has been on any urologic medications that I can find and it does not appear that he needs to be on any currently in terms of alpha blockers or 5 alpha-reductase inhibitors.
[2017-12-06 05:47] LABS: Hemoglobin 13.7 g/dL (14.0-18.0); Platelet Count 202 thou/uL (130-400)
[2017-12-06 05:55] LABS: Anion Gap 17 mmol/L (10-20); BUN (Urea Nitrogen) 57 mg/dL (8.4-25.7); Calc. Creatinine Clearance 26 mL/min (70-130); Carbon Dioxide 21 mmol/L (23-31); Chloride 103 mmol/L (98-107); Estimated GFR-MDRD 28; Glucose 138 mg/dL (83-110); Magnesium 2.9 mg/dL (1.6-2.6); Phosphorus 4.6 mg/dL (2.3-4.7); Potassium 4.4 mmol/L (3.5-5.1); Sodium 137 mmol/L (136-145)
[2017-12-06] MEDS: Multivit, Therapeutic 1 TAB PO SCH (08:44)
[2017-12-06] MEDS: Aspirin 81 mg Enteric Coated Tablet PO SCH (08:44)
[2017-12-06] MEDS: Docusate 100 MG CAP PO SCH ×2 (08:44→21:21)
[2017-12-06] MEDS: Carvedilol 3.125 MG TAB PO SCH ×2 (08:44→21:21)
[2017-12-06] MEDS: Folic Acid 1 MG TAB PO SCH (08:44)
[2017-12-06] MEDS: Cyanocobalamin (Vitamin B-12) 1,000 MCG TAB PO SCH (08:44)
[2017-12-06] MEDS: Ondansetron ODT 4 MG TAB PO PRN (13:05)
--- NOTE | 2017-12-06 13:19 | PDOC.CTH ---
<Ting Javier - Last Filed: 12/06/17 13:23> Cardiology Progress Note - Subjective the pt seen and examined. No overnight events. No cardiac complaints. He is on fluid restriction. He complains of vertigo-like dizziness, which worsen with movement. - Objective Vital Signs Temp Pulse Pulse Pulse Resp BP BP 12/06/17 11:55 96.8 F L 70 18 12/06/17 08:48 73 82 102/76 105/69 12/06/17 08:00 97.4 F L 74 18 12/06/17 07:31 74 18 12/06/17 04:10 97.4 F L 73 18 BP BP Pulse Ox Pulse Ox Pulse Ox 12/06/17 11:55 99/61 92 L 12/06/17 08:48 95 96 12/06/17 08:00 98 12/06/17 07:31 129/58 L 98 12/06/17 04:10 95/66 94 L Weight 173 lb 12/05/17 12/06/17 12/07/17 06:59 06:59 06:59 Intake Total 2212 1024 Output Total 1650 1100 Balance 562 -76 - Physical Examination General/Neuro: alert & oriented x3 Neck: no JVD present Lungs: CTA Heart: RRR Abdomen: soft Extremities: other: (No edema) - Telemetry Telemetry Rhythm: SR, 1st AVB, RBBB HR 85 - Labs Result Diagrams: 12/06/17 05:16 12/06/17 05:16 Troponin/CKMB CK-MB (CK-2) 2.5 ng/mL (0-6.6) 12/03/17 16:12 Troponin I 0.029 ng/mL (< 0.028) H 12/03/17 20:53 - Assessment/Plan 1. Acute on chronic systolic/diastolic heart failure exacerbation - stable today with Lasix drip 6mg/h and Coreg 3.125mg BID. ACEI/ARB on hold due to PADMA; 1500 ml/day fluid restriction 2. non-ischemic CMY with hx of AICD - stable 3. 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 Abnormal liver function tests, probably secondary to passive hepatic congestion. 4. ABD bloating with Hx of peptic ulcer - EGD today showed mild ascities, 5 cm hiatal hernia, bilat effusion; 5. GERD - on Pepcid MAR reviewed Review of Systems - Review of Systems Constitutional: reports: see HPI EENTM: reports: no symptoms reported Respiratory: reports: no symptoms reported Cardiac (ROS): reports: no symptoms reported ABD/GI: reports: nausea : reports: no symptoms reported <Piotr Tong - Last Filed: 12/06/17 21:02> Cardiology Progress Note - Objective Vital Signs Temp Pulse Resp BP BP BP BP 12/06/17 15:47 71 17 96/62 100/62 91/60 12/06/17 11:55 96.8 F L 70 18 99/61 Pulse Ox 12/06/17 15:47 98 12/06/17 11:55 92 L Weight 173 lb 12/05/17 12/06/17 12/07/17 06:59 06:59 06:59 Intake Total 2212 1024 720 Output Total 1650 1100 825 Balance 562 -76 -105 - Labs Result Diagrams: 12/06/17 05:16 12/06/17 05:16 Troponin/CKMB CK-MB (CK-2) 2.5 ng/mL (0-6.6) 12/03/17 16:12 Troponin I 0.029 ng/mL (< 0.028) H 12/03/17 20:53 - Assessment/Plan pt. seen and eval. by me. Resting comfortably. I agree with the A/P by the GROUND TRANSPORTATION OPERATOR. Continue diuresis. Plan for NH placement at least temporarily.
--- NOTE | 2017-12-06 14:15 | PDOC.PN ---
- Subjective Encounter Start Date: 12/06/17 Encounter Start Time: 08:30 Patient seen and examined for CHF/Abd pain. SOB improving. No new complaints. No overnight events - Objective Resuscitation Status: Resuscitation Status DNR:Do Not Resuscitate MAR Reviewed: Yes Vital Signs & Weight: Vital Signs (12 hours) Temp Pulse Pulse Pulse Resp BP BP 12/06/17 11:55 96.8 F L 70 18 12/06/17 08:48 73 82 102/76 105/69 12/06/17 08:00 97.4 F L 74 18 12/06/17 07:31 74 18 12/06/17 04:10 97.4 F L 73 18 BP BP Pulse Ox Pulse Ox Pulse Ox 12/06/17 11:55 99/61 92 L 12/06/17 08:48 95 96 12/06/17 08:00 98 12/06/17 07:31 129/58 L 98 12/06/17 04:10 95/66 94 L Weight Weight 173 lb I&O: 12/05/17 12/06/17 12/07/17 06:59 06:59 06:59 Intake Total 2212 1024 Output Total 1650 1100 Balance 562 -76 Result Diagrams: 12/06/17 05:16 12/06/17 05:16 EKG Reviewed by me: Yes (Tele paced) Phys Exam - Physical Examination Constitutional: NAD Respiratory: no wheezing, no rhonchi Cardiovascular: RRR, no rub Gastrointestinal: soft, non-tender, positive bowel sounds Musculoskeletal: no edema Dx/Plan - Plan DVT proph w/heparin, DVT proph w/SCDs IMPRESSION: 1. 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 on Lasix drip. ACEI/ARB on hold due to renal failure 2. Acute kidney injury on CKD 3 3. UTI with bladder wall thickening - on Ceftriaxone 4. Abd discomfort due to Ascites/Hepatic congestion and Esophagitis - s/p EGD - on PPI 5. Other issues per previous notes PLAN: * Cont IV Ceftriaxone * Cont Coreg * Cont Lasix drip at 6 mg/ hr * AM labs * Cont to monitor * Cont current meds as below * Await Urine cultures * DC planning Review of Systems - Review of Systems Respiratory: negative: Cough, Dry, Shortness of Breath, Hemoptysis, SOB with Excertion, Pleuritic Pain, Sputum, Wheezing Cardiovascular: negative: chest pain, palpitations, orthopnea, paroxysmal nocturnal dyspnea, edema, light headedness, other - Medications/Allergies Allergies/Adverse Reactions: Allergies Allergy/AdvReac Type Severity Reaction Status Date / Time linaclotide [From Linzess] Allergy Diarrhea Verified 12/03/17 22:04 Medications: Current Medications Acetaminophen (Tylenol) 650 mg PO Q4H PRN PRN Reason: Headache/Fever or Pain Al Hydroxide/Mg Hydroxide (Maalox) 30 ml PO Q6H PRN PRN Reason: Heartburn or Indigestion Last Admin: 12/04/17 17:38 Dose: 30 ml Aspirin (Ecotrin) 81 mg PO DAILY [facility] Last Admin: 12/06/17 08:44 Dose: 81 mg Calcium Carbonate (Tums) 1,000 mg PO Q4H PRN PRN Reason: Heartburn or Indigestion Carvedilol (Coreg) 3.125 mg PO BID [facility] Last Admin: 12/06/17 08:44 Dose: 3.125 mg Cyanocobalamin (Vitamin B-12) 1,000 mcg PO DAILY [facility] Last Admin: 12/06/17 08:44 Dose: 1,000 mcg Docusate Sodium (Colace) 100 mg PO BID [facility] Last Admin: 12/06/17 08:44 Dose: 100 mg Folic Acid (Folvite) 1 mg PO DAILY [facility] Last Admin: 12/06/17 08:44 Dose: 1 mg Furosemide 100 mg/ Sodium (Chloride) 100 mls @ 6 mls/hr IVPB INF [facility] PRN Reason: 6 MG/HR Last Admin: 12/05/17 23:57 Dose: 100 mls Ceftriaxone Sodium 1 gm/ (Sodium Chloride) 100 mls @ 200 mls/hr IVPB Q24HR [facility] Last Admin: 12/05/17 23:57 Dose: 100 mls Multivitamins (Theragran) 1 tab PO DAILY [facility] Last Admin: 12/06/17 08:44 Dose: 1 tab Nitroglycerin (Nitrostat) 0.4 mg PO Q5MIN PRN PRN Reason: Chest Pain Ondansetron HCl (Zofran Odt) 4 mg PO Q6H PRN PRN Reason: Nausea/Vomiting Last Admin: 12/06/17 13:05 Dose: 4 mg Ondansetron HCl (Zofran) 4 mg IVP Q6H PRN PRN Reason: Nausea/Vomiting Pantoprazole Sodium (Protonix) 40 mg PO DAILY [facility] Last Admin: 12/06/17 08:44 Dose: 40 mg Potassium Chloride (K-Dur) 20 meq PO QAM-[facility] Last Admin: 12/05/17 13:45 Dose: 20 meq Senna (Senokot) 2 tab PO HSPRN PRN PRN Reason: Constipation Sodium Chloride (Flush - Normal Saline) 10 ml IVF Q12HR [facility] Last Admin: 12/06/17 08:44 Dose: 10 ml Sodium Chloride (Flush - Normal Saline) 10 ml IVF PRN PRN PRN Reason: Saline Flush
--- NOTE | 2017-12-06 16:16 | PRG ---
DATE OF SERVICE: 12/06/2017 SUBJECTIVE: Mr. Williamson states he feels dizzy today, stomach feeling better. MEDICATIONS: Reviewed. OBJECTIVE: VITAL SIGNS: Temperature 96.8, pulse 70, blood pressure 102/72-99/61. LUNGS: Clear. HEART: Regular rate and rhythm. ABDOMEN: Soft, slightly protuberant, nontender. EXTREMITIES: Reveal no edema. LABORATORY STUDIES: Hemoglobin 13.7, BUN and creatinine are 57 and 2.22. ASSESSMENT: 1. With regard to his abdominal bloating, his EGD was negative. I think that his GI symptoms relate d to his heart failure. He has aerophagia when he cannot breathe. He has some mild ascites present. 2. Vertigo. He does have tries to stand up. He may be becoming orthostatic. RECOMMENDATIONS: 1. Orthostatic vital signs. 2. There is no history of peptic ulcer disease. I did not think there is a GI etiology to his abdom inal bloating. His symptoms related to his mild ascites and heart failure and aerophagia. At this t valerie, we will follow from a distance. Please do not hesitate to contact me if I can be of further ass istance.
[2017-12-06] MEDS: Acetaminophen 325 MG TAB PO PRN (16:54)
[2017-12-06] MEDS: Furosemide 100 MG in Sodium Chloride 0.9% 90 ML IVPB SCH (17:49)
[2017-12-06] MEDS: Heparin 5,000 UNITS/ML VIAL SC SCH (21:22)
[2017-12-06] MEDS: cefTRIAXone\\ROCEPHIN 1 GM in Sodium Chloride 0.9% 100 ML IVPB SCH (23:37)
[2017-12-07 05:16] LABS: Anion Gap 16 mmol/L (10-20); BUN (Urea Nitrogen) 55 mg/dL (8.4-25.7); Calc. Creatinine Clearance 28 mL/min (70-130); Calcium 8.6 mg/dL (7.8-10.44); Carbon Dioxide 22 mmol/L (23-31); Chloride 102 mmol/L (98-107); Estimated GFR-MDRD 32; Glucose 107 mg/dL (83-110); Potassium 3.9 mmol/L (3.5-5.1); Sodium 136 mmol/L (136-145)
[2017-12-07] MEDS: Carvedilol 3.125 MG TAB PO SCH ×2 (08:41→20:53)
[2017-12-07] MEDS: Cyanocobalamin (Vitamin B-12) 1,000 MCG TAB PO SCH (09:21)
[2017-12-07] MEDS: Aspirin 81 mg Enteric Coated Tablet PO SCH (09:21)
[2017-12-07] MEDS: Folic Acid 1 MG TAB PO SCH (09:21)
[2017-12-07] MEDS: Multivit, Therapeutic 1 TAB PO SCH (09:21)
[2017-12-07] MEDS: Docusate 100 MG CAP PO SCH ×2 (09:21→20:52)
[2017-12-07] MEDS: Heparin 5,000 UNITS/ML VIAL SC SCH ×2 (09:22→20:52)
[2017-12-07] MEDS: Furosemide 100 MG in Sodium Chloride 0.9% 90 ML IVPB SCH (11:07)
--- NOTE | 2017-12-07 16:53 | PDOC.CTH ---
<Ting Javier - Last Filed: 12/07/17 16:51> Cardiology Progress Note - Subjective The pt seen and examined. No overnight events. No cardiac complaints. He is on fluid restriction. He complains of mild nausea and less appetite. - Objective Vital Signs Temp Pulse Resp BP BP BP Pulse Ox 12/07/17 16:40 98.5 F 72 18 98/65 100 12/07/17 11:01 97.8 F 70 18 94/57 L 98 12/07/17 08:05 97.7 F 70 16 85/54 L 94 L Weight 175 lb 12/06/17 12/07/17 12/08/17 06:59 06:59 06:59 Intake Total 1024 1045 600 Output Total 1100 2050 Balance -76 -1005 600 - Physical Examination General/Neuro: alert & oriented x3 Neck: no JVD present Lungs: other: (diminished at bases) Heart: RRR Abdomen: soft Extremities: other: (no edema) - Telemetry Telemetry Rhythm: SR 80s - Labs Result Diagrams: 12/06/17 05:16 12/07/17 04:53 Troponin/CKMB CK-MB (CK-2) 2.5 ng/mL (0-6.6) 12/03/17 16:12 Troponin I 0.029 ng/mL (< 0.028) H 12/03/17 20:53 - Assessment/Plan 1. Acute on chronic systolic/diastolic heart failure exacerbation - stable today with Lasix drip 6mg/h and Coreg 3.125mg BID. ACEI/ARB on hold due to PADMA; 1500 ml/day fluid restriction 2. non-ischemic CMY with hx of AICD - stable 3. 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 Abnormal liver function tests, probably secondary to passive hepatic congestion. 4. ABD bloating with Hx of peptic ulcer - EGD on 12/06/17 showed mild ascities , 5 cm hiatal hernia, bilat effusion; stable 5. GERD - on Pepcid MAR reviewed * Plan for NH placement at least temporarily. Review of Systems - Review of Systems Constitutional: reports: weakness EENTM: reports: see HPI Respiratory: reports: no symptoms reported Cardiac (ROS): reports: no symptoms reported ABD/GI: reports: see HPI : reports: no symptoms reported Musculoskeletal: reports: no symptoms reported <Piotr Tong - Last Filed: 12/08/17 21:42> Cardiology Progress Note - Objective Vital Signs Temp Pulse Pulse Pulse Resp BP BP 12/08/17 16:00 98.4 F 83 18 12/08/17 12:10 97.5 F L 73 16 12/08/17 10:21 94 74 108/71 128/66 BP BP Pulse Ox Pulse Ox Pulse Ox 12/08/17 16:00 96/62 100 12/08/17 12:10 107/74 96 12/08/17 10:21 98 94 L Weight 173 lb 9.6 oz 12/07/17 12/08/17 12/09/17 06:59 06:59 06:59 Intake Total 1045 1120 960 Output Total 2050 800 600 Balance -1005 320 360 - Labs Result Diagrams: 12/06/17 05:16 12/08/17 05:02 Troponin/CKMB CK-MB (CK-2) 2.5 ng/mL (0-6.6) 12/03/17 16:12 Troponin I 0.029 ng/mL (< 0.028) H 12/03/17 20:53 - Assessment/Plan pt. seen and eval. by me. Resting comfortably. I agree with the A/P by the BUTT SAWYER. Continue diuresis. Plan for NH placement at least temporarily.
--- NOTE | 2017-12-07 21:47 | PDOC.PN ---
- Subjective Encounter Start Date: 12/07/17 Encounter Start Time: 18:30 Patient seen and examined for CHF. No new complaints. No overnight events - Objective Resuscitation Status: Resuscitation Status DNR:Do Not Resuscitate MAR Reviewed: Yes Vital Signs & Weight: Vital Signs (12 hours) Temp Pulse Resp BP BP Pulse Ox 12/07/17 19:15 97.5 F L 70 16 99/65 100 12/07/17 16:40 98.5 F 72 18 98/65 100 12/07/17 11:01 97.8 F 70 18 94/57 L 98 Weight Weight 175 lb I&O: 12/06/17 12/07/17 12/08/17 06:59 06:59 06:59 Intake Total 1024 1045 900 Output Total 1100 2050 0 Balance -76 -1005 900 Result Diagrams: 12/06/17 05:16 12/07/17 04:53 EKG Reviewed by me: Yes (Tele paced) Phys Exam - Physical Examination Constitutional: NAD Respiratory: no wheezing, no rhonchi Cardiovascular: RRR, no rub Gastrointestinal: soft, non-tender, positive bowel sounds Musculoskeletal: no edema Dx/Plan - Plan continue antibiotics, PT/OT, DVT proph w/heparin, DVT proph w/SCDs IMPRESSION: 1. 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 on Lasix drip. 2. Acute kidney injury on CKD 3 3. UTI with bladder wall thickening - on Ceftriaxone 4. Abd discomfort due to Ascites/Hepatic congestion and Esophagitis - s/p EGD - on PPI - improving 5. Other issues per previous notes PLAN: -ACEI/ARB on hold due to renal failure -Cont IV Ceftriaxone - cultures negative -Cont Coreg/ Lasix drip at 6 mg/hr -Daily BMP -Cont current meds as below -DC planning Review of Systems - Review of Systems Respiratory: negative: Cough, Dry, Shortness of Breath, Hemoptysis, SOB with Excertion, Pleuritic Pain, Sputum, Wheezing Cardiovascular: negative: chest pain, palpitations, orthopnea, paroxysmal nocturnal dyspnea, edema, light headedness, other - Medications/Allergies Allergies/Adverse Reactions: Allergies Allergy/AdvReac Type Severity Reaction Status Date / Time linaclotide [From Linzess] Allergy Diarrhea Verified 12/03/17 22:04 Medications: Current Medications Acetaminophen (Tylenol) 650 mg PO Q4H PRN PRN Reason: Headache/Fever or Pain Last Admin: 12/06/17 16:54 Dose: 650 mg Al Hydroxide/Mg Hydroxide (Maalox) 30 ml PO Q6H PRN PRN Reason: Heartburn or Indigestion Last Admin: 12/04/17 17:38 Dose: 30 ml Aspirin (Ecotrin) 81 mg PO DAILY [facility] Last Admin: 12/07/17 09:21 Dose: 81 mg Calcium Carbonate (Tums) 1,000 mg PO Q4H PRN PRN Reason: Heartburn or Indigestion Carvedilol (Coreg) 3.125 mg PO BID [facility] Last Admin: 12/07/17 20:53 Dose: Not Given Cyanocobalamin (Vitamin B-12) 1,000 mcg PO DAILY [facility] Last Admin: 12/07/17 09:21 Dose: 1,000 mcg Docusate Sodium (Colace) 100 mg PO BID [facility] Last Admin: 12/07/17 20:52 Dose: 100 mg Folic Acid (Folvite) 1 mg PO DAILY [facility] Last Admin: 12/07/17 09:21 Dose: 1 mg Heparin Sodium (Porcine) (Heparin) 5,000 units SC BID [facility] Last Admin: 12/07/17 20:52 Dose: 5,000 units Furosemide 100 mg/ Sodium (Chloride) 100 mls @ 6 mls/hr IVPB INF [facility] PRN Reason: 6 MG/HR Last Admin: 12/07/17 11:07 Dose: 100 mls Ceftriaxone Sodium 1 gm/ (Sodium Chloride) 100 mls @ 200 mls/hr IVPB Q24HR [facility] Last Admin: 12/06/17 23:37 Dose: 100 mls Multivitamins (Theragran) 1 tab PO DAILY [facility] Last Admin: 12/07/17 09:21 Dose: 1 tab Nitroglycerin (Nitrostat) 0.4 mg PO Q5MIN PRN PRN Reason: Chest Pain Ondansetron HCl (Zofran Odt) 4 mg PO Q6H PRN PRN Reason: Nausea/Vomiting Last Admin: 12/06/17 13:05 Dose: 4 mg Ondansetron HCl (Zofran) 4 mg IVP Q6H PRN PRN Reason: Nausea/Vomiting Pantoprazole Sodium (Protonix) 40 mg PO DAILY [facility] Last Admin: 12/07/17 09:22 Dose: 40 mg Potassium Chloride (K-Dur) 20 meq PO QAM-WM [facility] Last Admin: 12/05/17 13:45 Dose: 20 meq Saccharomyces Boulardii (Florastor) 250 mg PO DAILY [facility] Senna (Senokot) 2 tab PO HSPRN PRN PRN Reason: Constipation Sodium Chloride (Flush - Normal Saline) 10 ml IVF Q12HR [facility] Last Admin: 12/07/17 20:53 Dose: Not Given Sodium Chloride (Flush - Normal Saline) 10 ml IVF PRN PRN PRN Reason: Saline Flush
[2017-12-07] MEDS: cefTRIAXone\\ROCEPHIN 1 GM in Sodium Chloride 0.9% 100 ML IVPB SCH (22:30)
[2017-12-08] MEDS: Furosemide 100 MG in Sodium Chloride 0.9% 90 ML IVPB SCH (03:55)
[2017-12-08 05:45] LABS: Anion Gap 16 mmol/L (10-20); BUN (Urea Nitrogen) 56 mg/dL (8.4-25.7); Calc. Creatinine Clearance 28 mL/min (70-130); Calcium 8.9 mg/dL (7.8-10.44); Carbon Dioxide 23 mmol/L (23-31); Chloride 102 mmol/L (98-107); Estimated GFR-MDRD 31; Glucose 113 mg/dL (83-110); Potassium 4.1 mmol/L (3.5-5.1); Sodium 137 mmol/L (136-145)
[2017-12-08] MEDS: Docusate 100 MG CAP PO SCH ×2 (08:40→20:08)
[2017-12-08] MEDS: Saccharomyces boulardii 250 MG CAP PO SCH (08:40)
[2017-12-08] MEDS: Multivit, Therapeutic 1 TAB PO SCH (08:40)
[2017-12-08] MEDS: Heparin 5,000 UNITS/ML VIAL SC SCH ×2 (08:40→20:08)
[2017-12-08] MEDS: Aspirin 81 mg Enteric Coated Tablet PO SCH (08:40)
[2017-12-08] MEDS: Folic Acid 1 MG TAB PO SCH (08:40)
[2017-12-08] MEDS: Cyanocobalamin (Vitamin B-12) 1,000 MCG TAB PO SCH (08:40)
[2017-12-08] MEDS: Carvedilol 3.125 MG TAB PO SCH ×2 (08:44→20:08)
[2017-12-08] MEDS: Ondansetron ODT 4 MG TAB PO PRN ×2 (11:01→20:08)
--- NOTE | 2017-12-08 14:11 | PDOC.CTH ---
<Ting Javier - Last Filed: 12/08/17 14:06> Cardiology Progress Note - Subjective The pt seen and examined. No overnight events. No cardiac complaints. He cont. having vertigo like dizziness. He feels dizziness with any movement all day today. - Objective Vital Signs Temp Pulse Pulse Pulse Resp BP BP 12/08/17 12:10 97.5 F L 73 16 12/08/17 10:21 94 74 108/71 128/66 12/08/17 08:00 97.4 F L 81 18 12/08/17 04:00 97.8 F 78 20 BP BP Pulse Ox Pulse Ox Pulse Ox 12/08/17 12:10 107/74 96 12/08/17 10:21 98 94 L 12/08/17 08:00 98/67 96 12/08/17 04:00 95/65 100 Weight 173 lb 9.6 oz 12/07/17 12/08/17 12/09/17 06:59 06:59 06:59 Intake Total 1045 1120 Output Total 2050 800 Balance -1005 320 - Physical Examination General/Neuro: alert & oriented x3 Neck: no JVD present Lungs: CTA Heart: RRR Abdomen: soft Extremities: other: (No edema) - Telemetry Telemetry Rhythm: SR, RBBB, 1st AVB, - Labs Result Diagrams: 12/06/17 05:16 12/08/17 05:02 Troponin/CKMB CK-MB (CK-2) 2.5 ng/mL (0-6.6) 12/03/17 16:12 Troponin I 0.029 ng/mL (< 0.028) H 12/03/17 20:53 - Assessment/Plan 1. Acute on chronic systolic/diastolic heart failure exacerbation - stable today with Lasix drip 6mg/h and Coreg 3.125mg BID. ACEI/ARB on hold due to PADMA; 1500 ml/day fluid restriction 2. non-ischemic CMY with hx of AICD - stable 3. 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 Abnormal liver function tests, probably secondary to passive hepatic congestion. 4. ABD bloating with Hx of peptic ulcer - EGD on 12/06/17 showed mild ascities , 5 cm hiatal hernia, bilat effusion; stable 5. GERD - on Pepcid 6. Vertigo - The pt complains of dizziness with any movement. MAR reviewed * Plan for NH placement at least temporarily. Review of Systems - Review of Systems Constitutional: reports: see HPI EENTM: reports: see HPI Respiratory: reports: no symptoms reported Cardiac (ROS): reports: no symptoms reported ABD/GI: reports: no symptoms reported : reports: no symptoms reported Musculoskeletal: reports: no symptoms reported <Piotr Tong - Last Filed: 12/08/17 21:42> Cardiology Progress Note - Objective Vital Signs Temp Pulse Pulse Pulse Resp BP BP 12/08/17 16:00 98.4 F 83 18 12/08/17 12:10 97.5 F L 73 16 12/08/17 10:21 94 74 108/71 128/66 BP BP Pulse Ox Pulse Ox Pulse Ox 12/08/17 16:00 96/62 100 12/08/17 12:10 107/74 96 12/08/17 10:21 98 94 L Weight 173 lb 9.6 oz 12/07/17 12/08/17 12/09/17 06:59 06:59 06:59 Intake Total 1045 1120 960 Output Total 2050 800 600 Balance -1005 320 360 - Labs Result Diagrams: 12/06/17 05:16 12/08/17 05:02 Troponin/CKMB CK-MB (CK-2) 2.5 ng/mL (0-6.6) 12/03/17 16:12 Troponin I 0.029 ng/mL (< 0.028) H 12/03/17 20:53 - Assessment/Plan pt. seen and eval. by me. Resting comfortably. I agree with the A/P by the WRECKING SUPERVISOR. Continue diuresis. Plan for NH placement at least temporarily.
--- NOTE | 2017-12-08 16:37 | PDOC.PN ---
- Subjective Encounter Start Date: 12/08/17 Encounter Start Time: 15:00 Patient seen and examined. No new complaints. No CP/SOB/leg edema. No overnight events - Objective Resuscitation Status: Resuscitation Status DNR:Do Not Resuscitate MAR Reviewed: Yes Vital Signs & Weight: Vital Signs (12 hours) Temp Pulse Pulse Pulse Resp BP BP 12/08/17 12:10 97.5 F L 73 16 12/08/17 10:21 94 74 108/71 128/66 12/08/17 08:00 97.4 F L 81 18 BP BP Pulse Ox Pulse Ox Pulse Ox 12/08/17 12:10 107/74 96 12/08/17 10:21 98 94 L 12/08/17 08:00 98/67 96 Weight Weight 173 lb 9.6 oz I&O: 12/07/17 12/08/17 12/09/17 06:59 06:59 06:59 Intake Total 1045 1120 Output Total 2050 800 Balance -1005 320 Result Diagrams: 12/06/17 05:16 12/08/17 05:02 EKG Reviewed by me: Yes (Tele paced) Phys Exam - Physical Examination Constitutional: NAD Respiratory: no wheezing, no rhonchi Cardiovascular: RRR, no rub Gastrointestinal: soft, non-tender, positive bowel sounds Musculoskeletal: no edema Neurological: moves all 4 limbs Dx/Plan - Plan PT/OT, DVT proph w/heparin, DVT proph w/SCDs IMPRESSION: 1. 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 on Lasix drip @ 6mg/hr 2. Acute kidney injury on CKD 3 - Creatinine stable 3. UTI with bladder wall thickening - on Ceftriaxone, cultures neg 4. Abd discomfort due to Ascites/Hepatic congestion and Esophagitis - s/p EGD - on PPI - improving 5. Abnormal liver function tests, probably secondary to passive hepatic congestion/Elevated troponins, probably secondary to demand ischemia-congestive heart failure/Hyponatremia/Microcytic anemia/GERD/BPH PLAN: Cont Lasix drip at 6 mg/hr due to low BP ACEI/ARB on hold due to renal failure Cont Coreg at current dose Cont fluid restriction 1500ml/d Cont IV Ceftriaxone for UTI - cultures negative - Will stop after total of 5 doses. BMP in AM HH in AM Cont current meds as below DC planning to SNF in 1-2 if ok with Cardiology DVT proph with SQ Heparin Add Miralax for constipation Add Mucinex for cough Review of Systems - Review of Systems Respiratory: Cough, Dry. negative: Shortness of Breath, Hemoptysis, SOB with Excertion, Pleuritic Pain, Sputum, Wheezing Cardiovascular: negative: chest pain, palpitations, orthopnea, paroxysmal nocturnal dyspnea, edema, light headedness, other Gastrointestinal: Constipation. negative: Nausea, Vomiting, Abdominal Pain, Diarrhea, Melena, Hematochezia, Other - Medications/Allergies Allergies/Adverse Reactions: Allergies Allergy/AdvReac Type Severity Reaction Status Date / Time linaclotide [From Linzess] Allergy Diarrhea Verified 12/03/17 22:04 Medications: Current Medications Acetaminophen (Tylenol) 650 mg PO Q4H PRN PRN Reason: Headache/Fever or Pain Last Admin: 12/06/17 16:54 Dose: 650 mg Al Hydroxide/Mg Hydroxide (Maalox) 30 ml PO Q6H PRN PRN Reason: Heartburn or Indigestion Last Admin: 12/04/17 17:38 Dose: 30 ml Aspirin (Ecotrin) 81 mg PO DAILY [facility] Last Admin: 12/08/17 08:40 Dose: 81 mg Calcium Carbonate (Tums) 1,000 mg PO Q4H PRN PRN Reason: Heartburn or Indigestion Carvedilol (Coreg) 3.125 mg PO BID [facility] Last Admin: 12/08/17 08:44 Dose: Not Given Cyanocobalamin (Vitamin B-12) 1,000 mcg PO DAILY [facility] Last Admin: 12/08/17 08:40 Dose: 1,000 mcg Docusate Sodium (Colace) 100 mg PO BID [facility] Last Admin: 12/08/17 08:40 Dose: 100 mg Folic Acid (Folvite) 1 mg PO DAILY [facility] Last Admin: 12/08/17 08:40 Dose: 1 mg Guaifenesin (Mucinex) 600 mg PO Q12HR [facility] Heparin Sodium (Porcine) (Heparin) 5,000 units SC BID [facility] Last Admin: 12/08/17 08:40 Dose: 5,000 units Furosemide 100 mg/ Sodium (Chloride) 100 mls @ 6 mls/hr IVPB INF [facility] PRN Reason: 6 MG/HR Last Admin: 12/08/17 03:55 Dose: 100 mls Ceftriaxone Sodium 1 gm/ (Sodium Chloride) 100 mls @ 200 mls/hr IVPB Q24HR [facility] Last Admin: 12/07/17 22:30 Dose: 100 mls Multivitamins (Theragran) 1 tab PO DAILY [facility] Last Admin: 12/08/17 08:40 Dose: 1 tab Nitroglycerin (Nitrostat) 0.4 mg PO Q5MIN PRN PRN Reason: Chest Pain Ondansetron HCl (Zofran Odt) 4 mg PO Q6H PRN PRN Reason: Nausea/Vomiting Last Admin: 12/08/17 11:01 Dose: 4 mg Ondansetron HCl (Zofran) 4 mg IVP Q6H PRN PRN Reason: Nausea/Vomiting Pantoprazole Sodium (Protonix) 40 mg PO DAILY [facility] Last Admin: 12/08/17 08:40 Dose: 40 mg Polyethylene Glycol (Miralax) 17 gm PO DAILY [facility] Polyethylene Glycol (Miralax) 17 gm PO ONE [facility] Potassium Chloride (K-Dur) 20 meq PO QAM-WM [facility] Last Admin: 12/05/17 13:45 Dose: 20 meq Saccharomyces Boulardii (Florastor) 250 mg PO DAILY [facility] Last Admin: 12/08/17 08:40 Dose: 250 mg Senna (Senokot) 2 tab PO HSPRN PRN PRN Reason: Constipation Last Admin: 12/08/17 08:44 Dose: 2 tab Sodium Chloride (Flush - Normal Saline) 10 ml IVF Q12HR [facility] Last Admin: 12/08/17 08:44 Dose: Not Given Sodium Chloride (Flush - Normal Saline) 10 ml IVF PRN PRN PRN Reason: Saline Flush
[2017-12-08] MEDS ORDERED: Polyethylene Glycol 3350 17 GM Packet PO SCH (16:45)
[2017-12-08] MEDS: guaiFENesin ER 600 MG TAB PO SCH (20:08)
[2017-12-09] MEDS: cefTRIAXone\\ROCEPHIN 1 GM in Sodium Chloride 0.9% 100 ML IVPB SCH (00:51)
[2017-12-09] MEDS: Acetaminophen 325 MG TAB PO PRN (00:51)
[2017-12-09 05:46] LABS: Hemoglobin 13.8 g/dL (14.0-18.0); Platelet Count 158 thou/uL (130-400)
[2017-12-09 05:53] LABS: Anion Gap 19 mmol/L (10-20); BUN (Urea Nitrogen) 51 mg/dL (8.4-25.7); Calc. Creatinine Clearance 32 mL/min (70-130); Calcium 8.5 mg/dL (7.8-10.44); Carbon Dioxide 21 mmol/L (23-31); Chloride 101 mmol/L (98-107); Estimated GFR-MDRD 36; Glucose 98 mg/dL (83-110); Potassium 3.6 mmol/L (3.5-5.1); Sodium 137 mmol/L (136-145)
[2017-12-09] MEDS: Furosemide 100 MG in Sodium Chloride 0.9% 90 ML IVPB SCH ×2 (06:40→23:37)
[2017-12-09] MEDS: Folic Acid 1 MG TAB PO SCH (08:28)
[2017-12-09] MEDS: Docusate 100 MG CAP PO SCH ×2 (08:28→21:25)
[2017-12-09] MEDS: Aspirin 81 mg Enteric Coated Tablet PO SCH (08:28)
[2017-12-09] MEDS: Cyanocobalamin (Vitamin B-12) 1,000 MCG TAB PO SCH (08:28)
[2017-12-09] MEDS: guaiFENesin ER 600 MG TAB PO SCH ×2 (08:28→21:25)
[2017-12-09] MEDS: Multivit, Therapeutic 1 TAB PO SCH (08:29)
[2017-12-09] MEDS: Saccharomyces boulardii 250 MG CAP PO SCH (08:29)
[2017-12-09] MEDS: Heparin 5,000 UNITS/ML VIAL SC SCH ×2 (08:29→21:25)
[2017-12-09] MEDS: Polyethylene Glycol 3350 17 GM Packet PO SCH (08:30)
[2017-12-09] MEDS: Carvedilol 3.125 MG TAB PO SCH ×2 (08:33→21:26)
[2017-12-09] MEDS ORDERED: Potassium Chloride 20 MEQ TAB PO SCH (09:30)
--- NOTE | 2017-12-09 15:46 | PQF ---
CLINICAL DOCUMENTATION IMPROVEMENT CLARIFICATION FORM: ICD-10 Updated PLEASE DO AN ADDENDUM TO THE PROGRESS NOTE WITH ANY DOCUMENTATION UPDATES OR ADDITIONS AND CARRY THROUGH TO DC SUMMARY. THANK YOU. DATE: 12/09/17 ATTN : DR. BUCKLEY Please exercise your independent, professional judgment in responding to the clarification form. Clinical indicators are provided on the bottom of this form for your review Please check appropriate box(s) to clarify if the following diagnosis has been ruled in or ruled out: "CARDIORENAL SYNDROME" [ ] Ruled in diagnosis [ ] Continue to treat [ ] Resolved [ ] Ruled out diagnosis [ ] Cannot rule out diagnosis [ ] Other diagnosis [ ] Unable to determine In addition, please specify: Present on Admission (POA): [ ] Yes [ ] No [ ] Unable to determine For continuity of documentation, please document condition throughout progress notes and discharge summary. Thank You. CLINICAL INDICATORS - SIGNS / SYMPTOMS / LABS 12/04 AND 12/05 PROGRESS NOTES: "PADMA ON CKD STAGE 3, PROBABLY SECONDARY TO CARDIORENAL SYNDROME" RISKS: CHF CKD STAGE 3 TREATMENT : CARDIAC MONITORING CARDIOLOGY CONSULT COREG (12/04-PRESENT) LASIX GTT (12/04-PRESENT) (This form is maintained as a part of the permanent medical record) 2014 [employer]. All Rights Reserved ANGELO [email or web address] Office: [phone] JOSE ARMANDO
--- NOTE | 2017-12-09 15:54 | PQF ---
CLINICAL DOCUMENTATION IMPROVEMENT CLARIFICATION FORM: ICD-10 Updated PLEASE DO AN ADDENDUM TO THE PROGRESS NOTE WITH ANY DOCUMENTATION UPDATES OR ADDITIONS AND CARRY THROUGH TO DC SUMMARY. THANK YOU. DATE: 12/09/17 ATTN: DR. BUCKLEY Please exercise your independent, professional judgment in responding to the clarification form. Clinical indicators are provided on the bottom of this form for your review Please check appropriate box(s): [ ] Acute Renal Failure (ARF) / Acute Kidney Injury (PADMA) (Please specify associated condition, if applicable) [ ] Acute Tubular Necrosis (ATN) [ ] Acute Interstitial Nephritis (AIN) [ ] Acute Cortical Necrosis [ ] Acute Medullary Necrosis [ ] Other Etiology or underlying conditions related to the diagnosis of ARF/ PADMA: [ ] Acute on Chronic Renal Failure please specify Stage of CKD (see below) [ ] CKD without ARF/PADMA please specify Stage of CKD [ ] ESRD [ ] Other diagnosis [ ] Unable to determine In addition, please specify: Present on Admission (POA): [ ] Yes [ ] No [ ] Unable to determine National Kidney Foundation Guidelines for CKD Staging Stage I Kidney damage with normal or increased GFRGFR > 90 Stage IIKidney damage with mildly decreased GFRGFR 60-89 Stage III Kidney damage with moderately decreased GFRGFR 30-59 Stage IVKidney damage with severely decreased GFRGFR 16-29 Stage VKidney failureGFR<15 ESRDEnd Stage Renal DiseaseOn dialysis Acute Renal Failure/Acute Kidney Failure defined as: Increases in SCr by (>) 0.3 mg/dl within 48 hours OR- Increases in SCr by (>) 1.5 times baseline, known or presumed to have occurred within the prior 7 days OR- Urine volume < 0.5 ml/kg/hour for 6 hours (KDIGO supplement 2012 for RIFLE/BACILIO criteria) For continuity of documentation, please document condition throughout progress notes and discharge summary. Thank You. CLINICAL INDICATORS - SIGNS / SYMPTOMS / LABS SHORTNESS OF BREATH/EDEMA URINE CASTS 4-6 HYALINE CASTS BUN CREAT GFR 12/03: 46 2.10 30 12/04: 47-51 1.88-2.24 34-28 12/05: 51 2.06 31 12/06: 57 2.22 28 12/07: 55 2.01 32 12/08: 56 2.04 31 12/09 51 1.81 36 RISKS: CKD STAGE 3 WITH PADMA TREATMENT: IV LASIX (This form is maintained as a part of the permanent medical record) 2014 [employer]. All Rights Reserved ANGELO [email or web address] Office: [phone] [facility] DIVISIONYao
--- NOTE | 2017-12-09 17:17 | PDOC.CTH ---
<iTng Javier - Last Filed: 12/09/17 17:18> Cardiology Progress Note - Subjective The pt seen and examined. No overnight events. No cardiac complaints. He complains of weakness and drowsy. - Objective Vital Signs Temp Pulse Resp BP BP Pulse Ox 12/09/17 16:00 98.5 F 78 18 104/67 97 12/09/17 12:00 98.4 F 88 18 117/62 93 L 12/09/17 08:00 97.3 F L 72 18 95 12/09/17 07:43 97.3 F L 72 18 96/64 95 Weight 178 lb 14.4 oz 12/08/17 12/09/17 12/10/17 06:59 06:59 06:59 Intake Total 1120 1383 Output Total 800 1175 Balance 320 208 - Physical Examination General/Neuro: alert & oriented x3 Neck: no JVD present Lungs: CTA Heart: RRR Abdomen: soft Extremities: other: (1-2+ pitting BLE edema) - Telemetry Telemetry Rhythm: SR - Labs Result Diagrams: 12/09/17 04:38 12/09/17 04:38 Troponin/CKMB CK-MB (CK-2) 2.5 ng/mL (0-6.6) 12/03/17 16:12 Troponin I 0.029 ng/mL (< 0.028) H 12/03/17 20:53 - Assessment/Plan 1. Acute on chronic systolic/diastolic heart failure exacerbation - stable today with Lasix drip 6mg/h and Coreg 3.125mg BID. ACEI/ARB on hold due to PADMA; 1500 ml/day fluid restriction 2. non-ischemic CMY with hx of AICD - stable 3. 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 Abnormal liver function tests, probably secondary to passive hepatic congestion. 4. ABD bloating with Hx of peptic ulcer - EGD on 12/06/17 showed mild ascities , 5 cm hiatal hernia, bilat effusion; stable 5. GERD - on Pepcid 6. Vertigo - The pt complains of dizziness with any movement. MAR reviewed * Plan for NH placement at least temporarily. Review of Systems - Review of Systems Constitutional: reports: no symptoms reported EENTM: reports: no symptoms reported Respiratory: reports: no symptoms reported Cardiac (ROS): reports: no symptoms reported ABD/GI: reports: no symptoms reported : reports: no symptoms reported <Poitr Tong - Last Filed: 12/09/17 18:43> Cardiology Progress Note - Objective Vital Signs Temp Pulse Resp BP BP Pulse Ox 12/09/17 16:00 98.5 F 78 18 104/67 97 12/09/17 12:00 98.4 F 88 18 117/62 93 L 12/09/17 08:00 97.3 F L 72 18 95 12/09/17 07:43 97.3 F L 72 18 96/64 95 Weight 178 lb 8 oz 12/08/17 12/09/17 12/10/17 06:59 06:59 06:59 Intake Total 1120 1383 720 Output Total 800 1175 Balance 320 208 720 - Labs Result Diagrams: 12/09/17 04:38 12/09/17 04:38 Troponin/CKMB CK-MB (CK-2) 2.5 ng/mL (0-6.6) 12/03/17 16:12 Troponin I 0.029 ng/mL (< 0.028) H 12/03/17 20:53 - Assessment/Plan Pt. seen and eval. by me. i agree with the A/P by the DIE KEEPER. He continues to complain of dizziness. Chest clear. RRR. no edema.
--- NOTE | 2017-12-09 21:56 | PDOC.PN ---
- Subjective Encounter Start Date: 12/09/17 Encounter Start Time: 17:00 Patient seen and examined for CHF exacerbation. On Lasix drip. No new complaints except for chronic dizziness from peripheral vertigo. No overnight events - Objective Resuscitation Status: Resuscitation Status DNR:Do Not Resuscitate MAR Reviewed: Yes Vital Signs & Weight: Vital Signs (12 hours) Temp Pulse Resp BP BP Pulse Ox 12/09/17 16:00 98.5 F 78 18 104/67 97 12/09/17 12:00 98.4 F 88 18 117/62 93 L Weight Weight 178 lb 8 oz I&O: 12/08/17 12/09/17 12/10/17 06:59 06:59 06:59 Intake Total 1120 1383 720 Output Total 800 1175 450 Balance 320 208 270 Result Diagrams: 12/09/17 04:38 12/09/17 04:38 EKG Reviewed by me: Yes (Tele paced) Phys Exam - Physical Examination Constitutional: NAD Respiratory: no wheezing, no rhonchi Few bibasilar rales Cardiovascular: RRR, no rub Gastrointestinal: soft, non-tender, positive bowel sounds Musculoskeletal: no edema Neurological: moves all 4 limbs Dx/Plan - Plan DVT proph w/heparin, DVT proph w/SCDs IMPRESSION: 1. 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 Acute kidney injury on CKD 3 - due to cardiorenal syndrome (present on admission) 3. UTI with bladder wall thickening - on Ceftriaxone, cultures neg 4. Abd discomfort due to Ascites/Hepatic congestion and Esophagitis - s/p EGD - on PPI - improving 5. Abnormal liver function tests, probably secondary to passive hepatic congestion/Elevated troponins, due to demand ischemia/Hyponatremia/Microcytic anemia/GERD/BPH PLAN: Potassium chloride 20 meq x 1 ACEI/ARB on hold due to renal failure Cont Lasix drip at 6 mg/hr with Coreg Cont fluid restriction 1.5 l/d DC IV Ceftriaxone - cultures negative BMP in AM Cont other meds as below DC once cleared by Cardiology DVT proph with SQ Heparin Review of Systems - Review of Systems Respiratory: negative: Cough, Dry, Shortness of Breath, Hemoptysis, SOB with Excertion, Pleuritic Pain, Sputum, Wheezing Cardiovascular: negative: chest pain, palpitations, orthopnea, paroxysmal nocturnal dyspnea, edema, light headedness, other - Medications/Allergies Allergies/Adverse Reactions: Allergies Allergy/AdvReac Type Severity Reaction Status Date / Time linaclotide [From Linzess] Allergy Diarrhea Verified 12/03/17 22:04 Medications: Current Medications Acetaminophen (Tylenol) 650 mg PO Q4H PRN PRN Reason: Headache/Fever or Pain Last Admin: 12/09/17 00:51 Dose: 650 mg Al Hydroxide/Mg Hydroxide (Maalox) 30 ml PO Q6H PRN PRN Reason: Heartburn or Indigestion Last Admin: 12/04/17 17:38 Dose: 30 ml Aspirin (Ecotrin) 81 mg PO DAILY [facility] Last Admin: 12/09/17 08:28 Dose: 81 mg Calcium Carbonate (Tums) 1,000 mg PO Q4H PRN PRN Reason: Heartburn or Indigestion Carvedilol (Coreg) 3.125 mg PO BID [facility] Last Admin: 12/09/17 21:26 Dose: Not Given Cyanocobalamin (Vitamin B-12) 1,000 mcg PO DAILY [facility] Last Admin: 12/09/17 08:28 Dose: 1,000 mcg Docusate Sodium (Colace) 100 mg PO BID [facility] Last Admin: 12/09/17 21:25 Dose: 100 mg Folic Acid (Folvite) 1 mg PO DAILY [facility] Last Admin: 12/09/17 08:28 Dose: 1 mg Guaifenesin (Mucinex) 600 mg PO Q12HR [facility] Last Admin: 12/09/17 21:25 Dose: 600 mg Heparin Sodium (Porcine) (Heparin) 5,000 units SC BID [facility] Last Admin: 12/09/17 21:25 Dose: 5,000 units Furosemide 100 mg/ Sodium (Chloride) 100 mls @ 6 mls/hr IVPB INF [facility] PRN Reason: 6 MG/HR Last Admin: 12/09/17 06:40 Dose: 100 mls Multivitamins (Theragran) 1 tab PO DAILY [facility] Last Admin: 12/09/17 08:29 Dose: 1 tab Nitroglycerin (Nitrostat) 0.4 mg PO Q5MIN PRN PRN Reason: Chest Pain Ondansetron HCl (Zofran Odt) 4 mg PO Q6H PRN PRN Reason: Nausea/Vomiting Last Admin: 12/08/17 20:08 Dose: 4 mg Ondansetron HCl (Zofran) 4 mg IVP Q6H PRN PRN Reason: Nausea/Vomiting Pantoprazole Sodium (Protonix) 40 mg PO DAILY [facility] Last Admin: 12/09/17 08:29 Dose: 40 mg Polyethylene Glycol (Miralax) 17 gm PO DAILY [facility] Last Admin: 12/09/17 08:30 Dose: 17 gm Potassium Chloride (K-Dur) 20 meq PO QAM-WM [facility] Last Admin: 12/05/17 13:45 Dose: 20 meq Senna (Senokot) 2 tab PO HSPRN PRN PRN Reason: Constipation Last Admin: 12/08/17 08:44 Dose: 2 tab Sodium Chloride (Flush - Normal Saline) 10 ml IVF Q12HR [facility] Last Admin: 12/09/17 21:26 Dose: Not Given Sodium Chloride (Flush - Normal Saline) 10 ml IVF PRN PRN PRN Reason: Saline Flush
[2017-12-10 06:16] VITALS: BMI 22.9
[2017-12-10 06:19] LABS: Anion Gap 14 mmol/L (10-20); BUN (Urea Nitrogen) 48 mg/dL (8.4-25.7); Calc. Creatinine Clearance 34 mL/min (70-130); Calcium 8.5 mg/dL (7.8-10.44); Carbon Dioxide 22 mmol/L (23-31); Chloride 102 mmol/L (98-107); Estimated GFR-MDRD 39; Glucose 111 mg/dL (83-110); Potassium 3.8 mmol/L (3.5-5.1); Sodium 134 mmol/L (136-145)
[2017-12-10] MEDS: Potassium Chloride 20 MEQ TAB PO SCH (08:37)
[2017-12-10] MEDS: Carvedilol 3.125 MG TAB PO SCH ×2 (08:38→20:01)
[2017-12-10] MEDS: Aspirin 81 mg Enteric Coated Tablet PO SCH (08:38)
[2017-12-10] MEDS: Cyanocobalamin (Vitamin B-12) 1,000 MCG TAB PO SCH (08:38)
[2017-12-10] MEDS: Multivit, Therapeutic 1 TAB PO SCH (08:38)
[2017-12-10] MEDS: Docusate 100 MG CAP PO SCH ×2 (08:38→20:00)
[2017-12-10] MEDS: Folic Acid 1 MG TAB PO SCH (08:38)
[2017-12-10] MEDS: Heparin 5,000 UNITS/ML VIAL SC SCH ×2 (08:38→20:00)
[2017-12-10] MEDS: guaiFENesin ER 600 MG TAB PO SCH ×2 (08:38→20:00)
[2017-12-10] MEDS: Polyethylene Glycol 3350 17 GM Packet PO SCH (08:39)
--- NOTE | 2017-12-10 14:34 | PDOC.CTH ---
<Ting Javier - Last Filed: 12/10/17 14:39> Cardiology Progress Note - Subjective The pt seen and examined. No overnight events. No cardiac complaints. He cont. having dizziness, which chronic. He has not walked with PT today per Pt. - Objective Vital Signs Temp Pulse Resp BP BP BP Pulse Ox 12/10/17 12:00 97.5 F L 83 16 102/58 L 97 12/10/17 08:00 98 F 76 18 98 12/10/17 07:30 98 F 76 18 101/63 98 12/10/17 04:00 97.9 F 92 20 119/76 100 Weight 173 lb 14.4 oz 12/09/17 12/10/17 12/11/17 06:59 06:59 06:59 Intake Total 1383 825.6 Output Total 1175 675 Balance 208 150.6 - Physical Examination General/Neuro: alert & oriented x3 Neck: no JVD present Lungs: CTA Heart: RRR Abdomen: soft Extremities: other: (1-2+ pitting edema; Rt>Lt) - Labs Result Diagrams: 12/09/17 04:38 12/10/17 05:51 Troponin/CKMB CK-MB (CK-2) 2.5 ng/mL (0-6.6) 12/03/17 16:12 Troponin I 0.029 ng/mL (< 0.028) H 12/03/17 20:53 - Assessment/Plan 1. 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 non-ischemic CMY with hx of AICD - stable 3. 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 Abnormal liver function tests, probably secondary to passive hepatic congestion. 4. ABD bloating with Hx of peptic ulcer - EGD on 12/06/17 showed mild ascities , 5 cm hiatal hernia, bilat effusion; stable 5. GERD - on Pepcid 6. Vertigo - The pt complains of dizziness with any movement. MAR reviewed * Plan to d/c home. Review of Systems - Review of Systems Constitutional: reports: weakness EENTM: reports: no symptoms reported Respiratory: reports: no symptoms reported Cardiac (ROS): reports: no symptoms reported ABD/GI: reports: no symptoms reported : reports: no symptoms reported <Piotr Tong - Last Filed: 12/11/17 19:15> Cardiology Progress Note - Objective Vital Signs Temp Pulse Pulse Pulse Resp BP BP 12/11/17 15:05 97.4 F L 83 16 12/11/17 13:22 96.9 F L 90 16 12/11/17 09:21 79 88 111/59 L 113/71 12/11/17 08:58 97.4 F L 90 17 BP BP BP Pulse Ox Pulse Ox Pulse Ox 12/11/17 15:05 110/68 93 L 12/11/17 13:22 106/60 93 L 12/11/17 09:21 96 95 12/11/17 08:58 96/58 L 98 Weight 183 lb 4.8 oz 12/10/17 12/11/17 12/12/17 06:59 06:59 06:59 Intake Total 825.6 1488 Output Total 675 1175 Balance 150.6 313 - Labs Result Diagrams: 12/09/17 04:38 12/11/17 04:37 Troponin/CKMB CK-MB (CK-2) 2.5 ng/mL (0-6.6) 12/03/17 16:12 Troponin I 0.029 ng/mL (< 0.028) H 12/03/17 20:53 - Assessment/Plan Pt. was seen and eval. by me. I agree with the A/P by the [employer].
--- NOTE | 2017-12-10 18:57 | PDOC.PN ---
- Subjective Encounter Start Date: 12/10/17 Encounter Start Time: 16:00 Patient seen and examined for CHF. Feels better. On Lasix drip. No new complaints. No overnight events - Objective Resuscitation Status: Resuscitation Status DNR:Do Not Resuscitate Vital Signs & Weight: Vital Signs (12 hours) Temp Pulse Resp BP BP Pulse Ox 12/10/17 16:00 98.5 F 78 18 99/63 95 12/10/17 12:00 97.5 F L 83 16 102/58 L 97 12/10/17 08:00 98 F 76 18 98 12/10/17 07:30 98 F 76 18 101/63 98 Weight Weight 173 lb 14.4 oz I&O: 12/09/17 12/10/17 12/11/17 06:59 06:59 06:59 Intake Total 1383 825.6 888 Output Total 1175 675 325 Balance 208 150.6 563 Result Diagrams: 12/09/17 04:38 12/10/17 05:51 EKG Reviewed by me: Yes (Tele paced) Phys Exam - Physical Examination Constitutional: NAD Respiratory: no wheezing, no rhonchi Cardiovascular: RRR, no rub Gastrointestinal: soft, non-tender, positive bowel sounds Musculoskeletal: no edema Neurological: non-focal, moves all 4 limbs Dx/Plan - Plan DVT proph w/SCDs IMPRESSION: 1. Acute on chronic systolic/diastolic heart failure exacerbation - improving 2. Acute kidney injury on CKD 3 - due to cardiorenal syndrome (present on admission) 3. UTI with bladder wall thickening - Completed Atbx, cultures neg 4. Abd discomfort due to Ascites/Hepatic congestion and Esophagitis - s/p EGD - on PPI - improving 5. Abnormal liver function tests, probably secondary to passive hepatic congestion/Elevated troponins, probably secondary to demand ischemia-congestive heart failure/Hyponatremia/Microcytic anemia/GERD/BPH PLAN: Resume Lisinopril in AM Resume Torsemide in AM DC Lasix drip Cont fluid restriction BMP in AM Cont other meds as below DC planning DVT proph with SQ Heparin Attempted to call daughter at [phone] - no answer Review of Systems - Review of Systems Respiratory: negative: Cough, Dry, Shortness of Breath, Hemoptysis, SOB with Excertion, Pleuritic Pain, Sputum, Wheezing Cardiovascular: negative: chest pain, palpitations, orthopnea, paroxysmal nocturnal dyspnea, edema, light headedness, other - Medications/Allergies Allergies/Adverse Reactions: Allergies Allergy/AdvReac Type Severity Reaction Status Date / Time linaclotide [From Linwillys] Allergy Diarrhea Verified 12/03/17 22:04 Medications: Current Medications Acetaminophen (Tylenol) 650 mg PO Q4H PRN PRN Reason: Headache/Fever or Pain Last Admin: 12/09/17 00:51 Dose: 650 mg Al Hydroxide/Mg Hydroxide (Maalox) 30 ml PO Q6H PRN PRN Reason: Heartburn or Indigestion Last Admin: 12/04/17 17:38 Dose: 30 ml Aspirin (Ecotrin) 81 mg PO DAILY [facility] Last Admin: 12/10/17 08:38 Dose: 81 mg Calcium Carbonate (Tums) 1,000 mg PO Q4H PRN PRN Reason: Heartburn or Indigestion Carvedilol (Coreg) 3.125 mg PO BID [facility] Last Admin: 12/10/17 08:38 Dose: 3.125 mg Cyanocobalamin (Vitamin B-12) 1,000 mcg PO DAILY [facility] Last Admin: 12/10/17 08:38 Dose: 1,000 mcg Docusate Sodium (Colace) 100 mg PO BID [facility] Last Admin: 12/10/17 08:38 Dose: 100 mg Folic Acid (Folvite) 1 mg PO DAILY [facility] Last Admin: 12/10/17 08:38 Dose: 1 mg Guaifenesin (Mucinex) 600 mg PO Q12HR [facility] Last Admin: 12/10/17 08:38 Dose: 600 mg Heparin Sodium (Porcine) (Heparin) 5,000 units SC BID [facility] Last Admin: 12/10/17 08:38 Dose: 5,000 units Lisinopril (Zestril) 10 mg PO DAILY [facility] Multivitamins (Theragran) 1 tab PO DAILY [facility] Last Admin: 12/10/17 08:38 Dose: 1 tab Nitroglycerin (Nitrostat) 0.4 mg PO Q5MIN PRN PRN Reason: Chest Pain Ondansetron HCl (Zofran Odt) 4 mg PO Q6H PRN PRN Reason: Nausea/Vomiting Last Admin: 12/08/17 20:08 Dose: 4 mg Ondansetron HCl (Zofran) 4 mg IVP Q6H PRN PRN Reason: Nausea/Vomiting Pantoprazole Sodium (Protonix) 40 mg PO DAILY [facility] Last Admin: 12/10/17 08:38 Dose: 40 mg Polyethylene Glycol (Miralax) 17 gm PO DAILY [facility] Last Admin: 12/10/17 08:39 Dose: Not Given Potassium Chloride (K-Dur) 20 meq PO QAM-WM [facility] Last Admin: 12/10/17 08:37 Dose: 20 meq Senna (Senokot) 2 tab PO HSPRN PRN PRN Reason: Constipation Last Admin: 12/08/17 08:44 Dose: 2 tab Sodium Chloride (Flush - Normal Saline) 10 ml IVF Q12HR [facility] Last Admin: 12/10/17 08:44 Dose: Not Given Sodium Chloride (Flush - Normal Saline) 10 ml IVF PRN PRN PRN Reason: Saline Flush Torsemide (Demadex) 20 mg PO DAILY [facility]
[2017-12-10] MEDS: Calcium Carbonate 500 MG ChewTAB PO PRN (19:59)
[2017-12-11 06:28] LABS: Anion Gap 20 mmol/L (10-20); BUN (Urea Nitrogen) 53 mg/dL (8.4-25.7); Calc. Creatinine Clearance 32 mL/min (70-130); Carbon Dioxide 19 mmol/L (23-31); Chloride 102 mmol/L (98-107); Estimated GFR-MDRD 36; Glucose 117 mg/dL (83-110); Potassium 4.5 mmol/L (3.5-5.1); Sodium 136 mmol/L (136-145)
[2017-12-11] MEDS ORDERED: Torsemide 20 MG TAB PO SCH (09:00)
[2017-12-11] MEDS ORDERED: Lisinopril 10 MG TAB PO SCH (09:00)
[2017-12-11] MEDS: Potassium Chloride 20 MEQ TAB PO SCH (09:06)
[2017-12-11] MEDS: Aspirin 81 mg Enteric Coated Tablet PO SCH (09:06)
[2017-12-11] MEDS: Carvedilol 3.125 MG TAB PO SCH (09:07)
[2017-12-11] MEDS: Cyanocobalamin (Vitamin B-12) 1,000 MCG TAB PO SCH (09:08)
[2017-12-11] MEDS: Docusate 100 MG CAP PO SCH (09:08)
[2017-12-11] MEDS: Folic Acid 1 MG TAB PO SCH (09:08)
[2017-12-11] MEDS: guaiFENesin ER 600 MG TAB PO SCH (09:08)
[2017-12-11] MEDS: Heparin 5,000 UNITS/ML VIAL SC SCH (09:09)
[2017-12-11] MEDS: Multivit, Therapeutic 1 TAB PO SCH (09:10)
[2017-12-11] MEDS: Polyethylene Glycol 3350 17 GM Packet PO SCH (09:11)
--- NOTE | 2017-12-11 11:55 | DIS ---
DATE OF DISCHARGE: 12/11/2017 DISCHARGE DISPOSITION: To detention facility. ALLERGIES: The patient is allergic to LINACLOTIDE. CODE STATUS: DO NOT RESUSCITATE. DISCHARGE MEDICATIONS: Tylenol 650 mg twice a day, aspirin 81 mg daily, carvedilol 3.125 mg b.i.d., lisinopril 5 mg b.i.d., multivitamin 1 tablet daily, Protonix 40 mg daily, MiraLax 17 grams daily, De madex 20 mg daily. The patient will follow up with Dr. Tong and [facility] as scheduled. He will follow up wi th his primary care physician, Dr. Ceasar Landry in 1 week. Fall precaution was emphasized. Two-l iter fluid restriction was encouraged. The patient was seen and examined on the day of discharge, denies any new complaints. No chest pain, shortness of breath or palpitations. BRIEF HOSPITAL COURSE: The patient is an 86-year-old white male with chronic systolic and diastolic heart failure, ejection fraction 20%-25%, coronary artery disease, and GERD, who presented to the [facility] with shortness of breath with abdominal discomfort. He has also lost his appetite recently. Bette thompson refer to the history and physical for further details. The patient was admitted to the hospital with a diagnosis of acute on chronic systolic/diastolic hear t failure exacerbation. He was started on Lasix drip due to blood pressure on the lower side. He sh owed good improvement with the drip. The shortness of breath and abdominal discomfort have significa ntly improved. He was also seen by Cardiology, who agreed with the current plan of care. Cardiology consulted Gastroenterology due to persistent abdominal discomfort. The EGD was performed that showe d reflux esophagitis with hiatal hernia. He has been cleared by consultants for discharge. Entresto will be held. Carvedilol dose has been reduced to 3.125 b.i.d. due to blood pressure on the lower s jeni. Basic metabolic panel after 2-3 days is recommended. Primary care physician advised to follow. FINAL DIAGNOSES: 1. 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 2. Acute kidney injury on chronic kidney disease, stage 3, secondary to cardiorenal syndrome (presen t on admission), improving. 3. Urinary tract infection with bladder wall thickening. The patient was seen by Urology. He recei josie IV ceftriaxone during this hospital stay. His urine culture remained negative. His CT scan of t he abdomen and pelvis also showed some small pocket of gas within the urinary bladder, which was prob ably secondary to Bueno catheter that was placed in the emergency room. The catheter was subsequentl y removed per patient request. 4. Chronic anemia. 5. Abdominal discomfort secondary to ascites, esophagitis, and passive hepatic congestion. 6. Loss of appetite, probably secondary to congestive heart failure/hepatic congestion. 7. Abnormal liver function tests, probably secondary to passive hepatic congestion. 8. Elevated troponin secondary to demand ischemia/congestive heart failure. 9. Hyponatremia. 10. Gastroesophageal reflux disease. 11. Benign prostatic hypertrophy. 12. Microcytic anemia. SIGNIFICANT LABORATORIES: Creatinine on admission 2.1, at discharge is 1.78. BNP 9082. Maximum tro ponin 0.050. Urinalysis showed 7-10 wbc's without any bacteria. Urine culture negative. Plan of care was discussed with the patient in detail. He stated understanding. Total time coordinating the discharge of this patient was 36 minutes.
[2017-12-11] MEDS: Calcium Carbonate 500 MG ChewTAB PO PRN (13:30)
--- NOTE | 2017-12-11 14:14 | PDOC.CTH ---
Cardiology Progress Note - Subjective The pt seen and examined. No overnight events. No cardiac complaints. However , he cont. complaining of fatigue. - Objective Vital Signs Temp Pulse Pulse Pulse Resp BP BP 12/11/17 13:22 96.9 F L 90 16 12/11/17 09:21 79 88 111/59 L 113/71 12/11/17 08:58 97.4 F L 90 17 12/11/17 04:00 97.5 F L 77 20 BP BP BP Pulse Ox Pulse Ox Pulse Ox 12/11/17 13:22 106/60 93 L 12/11/17 09:21 96 95 12/11/17 08:58 96/58 L 98 12/11/17 04:00 107/64 92 L Weight 183 lb 4.8 oz 12/10/17 12/11/17 12/12/17 06:59 06:59 06:59 Intake Total 825.6 1488 Output Total 675 1175 Balance 150.6 313 - Physical Examination General/Neuro: alert & oriented x3 Neck: no JVD present Lungs: CTA Heart: RRR Abdomen: soft Extremities: other: (1-2+ pitting) - Telemetry Telemetry Rhythm: SR - Labs Result Diagrams: 12/09/17 04:38 12/11/17 04:37 Troponin/CKMB CK-MB (CK-2) 2.5 ng/mL (0-6.6) 12/03/17 16:12 Troponin I 0.029 ng/mL (< 0.028) H 12/03/17 20:53 - Assessment/Plan 1. Acute on chronic systolic/diastolic heart failure exacerbation - stable with torsemide 20mg qd, coreg 3.125mg bid, and Lisinopril 5mg qd; 2. non-ischemic CMY with hx of AICD - stable 3. 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 Abnormal liver function tests, probably secondary to passive hepatic congestion. 4. ABD bloating with Hx of peptic ulcer - EGD on 12/06/17 showed mild ascities , 5 cm hiatal hernia, bilat effusion; stable 5. GERD - on Pepcid 6. Vertigo - The pt complains of dizziness with any movement. MAR reviewed * Plan to d/c home. *The pt will f/u with Dr Tong' office within 1-2 wks. Review of Systems - Review of Systems Constitutional: reports: see HPI EENTM: reports: see HPI Respiratory: reports: no symptoms reported Cardiac (ROS): reports: no symptoms reported ABD/GI: reports: no symptoms reported : reports: no symptoms reported Musculoskeletal: reports: no symptoms reported
[2017-12-11 15:12] VITALS: BP 110/68; TEMP 97.4
[2017-12-12] MEDS ORDERED: Lisinopril 5 MG TAB PO SCH (09:00)
== END 2017-12-11 17:27 | DRG 291 ==
LOC: ERS 15:15 → 2NO 17:36
PROVIDERS: ADMIT Internal Medicine; ATTEND Internal Medicine
PROC: 0DJ08ZZ Inspection of Upper Intestinal Tract, Via Natural or Artificial Opening Endoscopic (ICD-10-PCS; principal; 2017-12-05)
DX: I13.0 Hypertensive heart and chronic kidney disease with heart failure and stage 1 through stage 4 chronic kidney disease, or unspecified chronic kidney disease (principal); I50.43 Acute on chronic combined systolic (congestive) and diastolic (congestive) heart failure; N17.9 Acute kidney failure, unspecified; E87.1 Hypo-osmolality and hyponatremia; R18.8 Other ascites; N39.0 Urinary tract infection, site not specified; I24.8 Other forms of acute ischemic heart disease; N18.3 Chronic kidney disease, stage 3 (moderate); N40.0 Benign prostatic hyperplasia without lower urinary tract symptoms; K76.1 Chronic passive congestion of liver; D50.9 Iron deficiency anemia, unspecified; Z95.810 Presence of automatic (implantable) cardiac defibrillator; I25.5 Ischemic cardiomyopathy; K44.9 Diaphragmatic hernia without obstruction or gangrene; K59.09 Other constipation; Z66 Do not resuscitate; R42 Dizziness and giddiness; R93.41 Abnormal radiologic findings on diagnostic imaging of renal pelvis, ureter, or bladder; I25.10 Atherosclerotic heart disease of native coronary artery without angina pectoris; K22.70 Barrett's esophagus without dysplasia; K21.0 Gastro-esophageal reflux disease with esophagitis; M19.90 Unspecified osteoarthritis, unspecified site; Z79.82 Long term (current) use of aspirin; Z88.8 Allergy status to other drugs, medicaments and biological substances
CPT/HCPCS: 36415; 51702; 71045; 74176; 76705; 80048; 80053; 81001; 82550; 82553; 83735; 83880; 84100; 84484; 85014; 85018; 85025; 85049; 87086; 93005; 93798; 96374; A4216; G8978-GP-CI; G8979-GP-CI; G8980-GP-CI; G8987-GO-CI; G8988-GO-CI; G8989-GO-CI; J0696; J1644; J1940; J2250; J7050; Q0162